=== PATIENT | male | born 1975 | race Caucasian/White ===

== ENCOUNTER 2025-05-01 17:18 | Inpatient (IN) | payer OTHER, SELFPAY ==
[2025-05-01] VITALS (14 sets, daily range): BP systolic 98–117; BP diastolic 61–86; PULSE 67–101; RESP 16–27; TEMP 36.6–36.7; O2SAT 92–100; BMI 26.6; BMI 27.8
--- NOTE | 2025-05-01 17:28 | ECG_ITS ---
APPROVED REPORT Exam: Resting ECG HR:100 bpm ECG Measurements Heart Rate 100 AXES CA 175 P 68 QRSd 166 QRS 122 QT 402 T 12 QTc 459 Conclusion SINUS TACHYCARDIA POSSIBLE LEFT ATRIAL ENLARGEMENT [-0.1mV P-WAVE IN V1/V2] INTRAVENTRICULAR CONDUCTION DELAY [130+ ms QRS DURATION] ABNORMAL ECG Electronically signed by : TRISTIAN RAYA, 05/04/2025 14:12:06
--- NOTE | 2025-05-01 17:29 | ED_ITS ---
Discharge Plan Disposition Patient Disposition: Admitted Prescriptions Prescriptions: No Action No Known Home Medications Referrals Follow up/Referrals: Provider,Referral, MD [Primary Care Provider, Medical] - See instructions Clinical Impressions Clinical Impression: Breath shortness, Elevated brain natriuretic peptide (BNP) level, Decreased cardiac ejection fraction Print Language Print Language: Belarusian Discharge ED Provider: Oumar Camacho General Adult HPI <ALEXIS Barajas - Last Filed: 05/01/25 19:22> General Chief complaint: Upper Respiratory Infection Stated complaint: SOA Time Seen by Provider: 05/01/25 17:29 Mode of Arrival: Ambulatory Source of Information: Patient Limitations: No Limitations History of Present Illness HPI narrative: 49-year-old male presents to the emergency department with shortness of breath, productive cough, congestion fever and chills that have actually improved over the last 3 days, patient's main concern today is shortness of breath , while working patient is experiencing significant shortness of breath, does endorse recent sick contact 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 Initial triage vitals noted for tachycardia otherwise unremarkable. Please note that above description of symptoms, in this electronic medical record under categorization of recalled from ER triage doctor by RN are reflective of an initial nursing assessment, however, is not reflective of my full history and physical exam that was personally taken and clarified. Consequentially, this preceding description of symptoms, which may include the patient's categorized chief complaint in the EMR, do not reflect my personal clinical impression, and the ultimate description of history of present illness and patient stated complaints should be deferred to this section of the note. Unless stated otherwise or congruent with this section of the note, additional signs, symptoms, or incongruence should be interpreted as inaccurate with my clinical impression. Onset (ago): day(s) Related Data Home Medications ?Medication ?Instructions ?Recorded ?Confirmed No Known Home Medications 05/01/2504/09 Allergies Allergy/AdvReac Type Severity Reaction Status Date / Time No Known Allergies Allergy Verified 05/01/25 17:39 [facility] <ALEXIS Barajas - Last Filed: 05/01/25 19:22> [facility] Disclaimer: The information contained in this section may have been updated after the patient was seen, as this information can be updated by other users. Social History (Updated 05/01/25 @ 19:22 by ALEXIS Barajas) Smoking Status: Never smoker alcohol intake: never current occupational status: employed and other Travel in the last 8 weeks?: None Have you lived/traveled outside US in past 30 days?: No Contact w/someone who lives/traveled outside US past 30 days?: No Exposure to someone with infectious disease in past 14 days?: No Do you have a fever (greater than 100.4 F or 38 C)?: No Have you tested positive for COVID-19?: No Exposed to someone with COVID-19 in past 14 days?: No Do you have a sore throat?: No Do you have a cough?: No Do you have any weakness?: No Do you have any diarrhea?: No Are you experiencing any unusual bleeding?: No Do you have any muscle aches/pain?: No Do you have any abdominal pain?: No Are you experiencing loss of taste or smell?: No <ALEXIS Barajas - Last Filed: 05/01/25 19:22> ROS Obtained: Yes All systems reviewed & no additional complaints except as documented Physical Exam <ALEXIS Barajas - Last Filed: 05/01/25 19:22> General General appearance: alert and in no apparent distress Head Head exam: atraumatic and normocephalic Eye Eye exam: Present PERRL and EOMI ENT ENT exam: Present mucous membranes moist Neck Neck exam: Present normal inspection Chest Chest inspection: Present normal inspection and symmetric chest wall rise Respiratory Respiratory exam: Present wheezes and other (Mild diffuse wheezes and crackles noted throughout bilateral lung field); Absent normal lung sounds bilaterally or respiratory distress Cardiovascular Cardiovascular exam: Present regular rate and normal rhythm Abdominal Exam Abdominal exam: Present soft; Absent tenderness, guarding, rebound or rigidity Extremities Exam Extremities exam: Present normal inspection Neurological Exam Neurological exam: Present alert and oriented X3 Psychiatric Psychiatric exam: Present normal affect Skin Skin exam: Present warm and dry Medical Decision Making <ALEXIS Barajas - Last Filed: 05/01/25 19:22> Medical Records Medical records reviewed: Yes I reviewed the patient's medical records. Screening: Per USPSTF and CDC recommendations, given the prevalence of disease in our region, it is our hospital?s policy to screen for HIV and viral Hepatitis for all patients aged 18 and over and those with ongoing risk factors. Deondre Inquiry Pt receiving controlled substance: No Deondre was queried for this patient: No Vital Signs: 05/01/25 17:20 05/01/25 17:27 05/01/25 17:30 Temperature 97.8 F Temperature Source Oral Pulse Rate 100 H 86 Pulse Rate [Left Radial] 101 H Respiratory Rate 16 Blood Pressure 110/83 117/70 Blood Pressure [Right Arm] 110/83 Blood Pressure Mean Blood Pressure Mean [Right Arm] 92 Blood Pressure Source [Right Arm] Automatic Cuff Blood Pressure Position [Right Arm] Sitting 02 Sat by Pulse Oximetry 96 96 94 L Oxygen Delivery Method Room Air 05/01/25 18:00 05/01/25 18:30 Temperature Temperature Source Pulse Rate 67 97 H Pulse Rate [Left Radial] Respiratory Rate 16 16 Blood Pressure 98/72 L 112/86 Blood Pressure [Right Arm] Blood Pressure Mean 80 94 Blood Pressure Mean [Right Arm] Blood Pressure Source [Right Arm] Blood Pressure Position [Right Arm] 02 Sat by Pulse Oximetry 100 96 Oxygen Delivery Method Lab Data Lab results reviewed: Yes I reviewed the patient's lab results. Lab Results 05/01/25 17:31: SARS-CoV-2 (PCR) Not detected, Influenza A Untype (PCR) Not detected, Influenza Type B (PCR) Not detected 05/01/25 17:40: WBC 17.0 H, RBC 4.33 L, Hgb 12.0 L, Hct 36.3 L, MCV 83.8, MCH 27.7, MCHC 33.1, RDW 14.4, Plt Count 331, MPV 10.1, Neut % (Auto) 80.3 H, Lymph % (Auto) 12.2, Greene % (Auto) 6.4, Eos % (Auto) 0.4, Baso % (Auto) 0.2, Neut # (Auto) 13.7 H, Lymph # (Auto) 2.1, Greene # (Auto) 1.1 H, Eos # (Auto) 0.1, Baso # (Auto) 0.0, Sodium 135 L, Potassium 3.2 L, Chloride 96 L, Carbon Dioxide 27, A nion Gap 15.2 H, BUN 9, Creatinine 1.00, Estimated Creat Clear 105, Estimated GFR 80, Est GFR ( Amer) 97, Glucose 97, Calcium 8.1 L, Magnesium 1.6, Total Bilirubin 0.4, AST 52, ALT 88 H, Alkaline Phosphatase 82, Troponin I 0.03, NT-Pro-B Natriuret Pep 7790 H, Total Protein 6.5, Albumin 3.7, Globulin 2.8, Albumin/Globulin Ratio 1.3 05/01/25 17:40 05/01/25 17:40 Orders (Tests/Meds): ED MEDICATIONS Generic Name Dose Route Start Last Admin Trade Name Farheen PRN Reason Stop Dose Admin Enoxaparin Sodium 80 mg 05/01/25 19:45 Enoxaparin 100mg/Ml Syringe 1 mg/kg (80 mg) 05/31/25 19:44 SUBCUT Q12H MATILDE Milrinone Lactate 20 mg/ 100 mls @ 3.062 mls/hr 05/01/25 19:32 Sodium Chloride IV 05/31/25 19:31 .Q24H MATILDE Protocol 0.125 MCG/KG/MIN Sodium Chloride 10 ml 05/01/25 18:40 05/01/25 18:41 Sodium Chloride 0.9% 10ml Syr (Rad Only) IV 05/31/25 18:39 10 ml NEEDED PRN Administration Maintain IV Site Discontinued Medications Generic Name Dose Route Start Last Admin Trade Name Freq PRN Reason Stop Dose Admin Albuterol/Ipratropium 6 ml 05/01/25 17:36 05/01/25 17:50 Ipratropium/Albuterol 3 Ml Neb IH 05/01/25 17:37 6 ml ONCE ONE Administration Furosemide 40 mg 05/01/25 19:10 05/01/25 19:15 Furosemide 40mg/4ml Vial IV 05/01/25 19:11 40 mg ONCE ONE Administration Iopamidol 70 ml 05/01/25 18:40 05/01/25 18:41 Iopamidol-370 (76%);100ml Bottle IV 05/01/25 18:41 70 ml ONCE ONE Administration Methylprednisolone Sodium Succinate 125 mg 05/01/25 17:36 05/01/25 17:50 Methylprednisolone Sod Succ 125mg Vial IV 05/01/25 17:37 125 mg ONCE ONE Administration Potassium Chloride 60 meq 05/01/25 18:29 05/01/25 18:50 Potassium Chloride 20meq Tab PO 05/01/25 18:30 60 meq ONCE ONE Administration Sodium Chloride 50 ml 05/01/25 18:40 05/01/25 18:41 0.9 % Sodium Chloride 50 Ml Vial IV 05/01/25 18:41 50 ml ONCE ONE Administration ORDERS Category Date Time Status CT angio chest PE protocol Stat Cat Scan 05/01/25 18:22 Completed POCUS Point of Care (ER Only) Stat Exams 05/01/25 18:56 Ordered XR chest portable Stat Exams 05/01/25 17:36 Completed Complete Blood Count Auto Diff Stat Lab 05/01/25 17:40 Completed Comprehensive Metabolic Panel Stat Lab 05/01/25 17:40 Completed Full Resp Panel w/COVID ([facility]) Routine Lab 05/01/25 17:31 Received Magnesium Stat Lab 05/01/25 17:40 Completed NT Pro Brain Natriuretic Pep. Stat Lab 05/01/25 17:40 Completed Rapid PCR Covid and Flu A/B Stat Lab 05/01/25 17:31 Completed Troponin I Q3H Lab 05/01/25 20:45 Ordered Troponin I Q3H Lab 05/01/25 23:45 Ordered Troponin I Stat Lab 05/01/25 17:40 Completed Medical Decision Narrative: 49-year-old male presents the emergency department with productive cough congestion, fever chills, shortness of breath, over the last 3 days, differential diagnosis to include but not limited to, COPD exacerbation, cardiac arrhythmia, electrolyte disturbance, acute bronchitis, viral URI, pneumonia among others. Will obtain basic laboratory studies, chest x-ray, EKG, magnesium level proBNP, rapid PCR COVID and flu, troponin, will give 6 mm DuoNeb, and will give 125 mg IV methylprednisone. CBC is notable for leukocytosis 17 COVID-19 and influenza are negative via PCR I reviewed the patient's chest x-ray along the corresponding radiologic report, no acute findings. CMP is noted for mild hypokalemia at 3.2, ALT elevation at 88 proBNP is elevated at 7790, as well as troponin at 0.03 will obtain CTA chest without contrast PE protocol. Will also replace patient's potassium with 60 milliequivalents p.o. potassium. I along with the attending physician obtained a bedside POCUS ultrasound please see attending physician/ultrasound note for full details. Will obtain full respiratory panel for further evaluation/characterization. Will also give 40 mg IV Lasix for elevated proBNP. I reviewed the patient's CTA chest with without contrast on the corresponding radiologic report, no evidence of pulmonary embolism, mild diffuse ground glass opacities noted bilaterally may represent alveolitis edema or early infiltrate, moderate cardiomegaly, no coronary calcium noted left ventricular dilation. I discussed this patient's case with the attending physician Dr. Camacho at shift change, he will be assuming the med patient's care/workup, disposition is pending cardiology consultation with most likely admission. <Oumar Camacho MD - Last Filed: 05/01/25 19:49> Vital Signs: 05/01/25 17:20 05/01/25 17:27 05/01/25 17:30 Temperature 97.8 F Temperature Source Oral Pulse Rate 100 H 86 Pulse Rate [Left Radial] 101 H Respiratory Rate 16 Blood Pressure 110/83 117/70 Blood Pressure [Right Arm] 110/83 Blood Pressure Mean Blood Pressure Mean [Right Arm] 92 Blood Pressure Source [Right Arm] Automatic Cuff Blood Pressure Position [Right Arm] Sitting 02 Sat by Pulse Oximetry 96 96 94 L Oxygen Delivery Method Room Air 05/01/25 18:00 05/01/25 18:30 Temperature Temperature Source Pulse Rate 67 97 H Pulse Rate [Left Radial] Respiratory Rate 16 16 Blood Pressure 98/72 L 112/86 Blood Pressure [Right Arm] Blood Pressure Mean 80 94 Blood Pressure Mean [Right Arm] Blood Pressure Source [Right Arm] Blood Pressure Position [Right Arm] 02 Sat by Pulse Oximetry 100 96 Oxygen Delivery Method Lab Data Lab Results 05/01/25 17:31: SARS-CoV-2 (PCR) Not detected, Influenza A Untype (PCR) Not detected, Influenza Type B (PCR) Not detected 05/01/25 17:40: WBC 17.0 H, RBC 4.33 L, Hgb 12.0 L, Hct 36.3 L, MCV 83.8, MCH 27.7, MCHC 33.1, RDW 14.4, Plt Count 331, MPV 10.1, Neut % (Auto) 80.3 H, Lymph % (Auto) 12.2, Greene % (Auto) 6.4, Eos % (Auto) 0.4, Baso % (Auto) 0.2, Neut # (Auto) 13.7 H, Lymph # (Auto) 2.1, Greene # (Auto) 1.1 H, Eos # (Auto) 0.1, Baso # (Auto) 0.0, Sodium 135 L, Potassium 3.2 L, Chloride 96 L, Carbon Dioxide 27, A nion Gap 15.2 H, BUN 9, Creatinine 1.00, Estimated Creat Clear 105, Estimated GFR 80, Est GFR ( Amer) 97, Glucose 97, Calcium 8.1 L, Magnesium 1.6, Total Bilirubin 0.4, AST 52, ALT 88 H, Alkaline Phosphatase 82, Troponin I 0.03, NT-Pro-B Natriuret Pep 7790 H, Total Protein 6.5, Albumin 3.7, Globulin 2.8, Albumin/Globulin Ratio 1.3 Orders (Tests/Meds): ED MEDICATIONS Generic Name Dose Route Start Last Admin Trade Name Freq PRN Reason Stop Dose Admin Enoxaparin Sodium 80 mg 05/01/25 19:45 Enoxaparin 100mg/Ml Syringe 1 mg/kg (80 mg) 05/31/25 19:44 SUBCUT Q12H MATILDE Milrinone Lactate 20 mg/ 100 mls @ 3.062 mls/hr 05/01/25 19:32 Sodium Chloride IV 05/31/25 19:31 .Q24H MATILDE Protocol 0.125 MCG/KG/MIN Sodium Chloride 10 ml 05/01/25 18:40 05/01/25 18:41 Sodium Chloride 0.9% 10ml Syr (Rad Only) IV 05/31/25 18:39 10 ml NEEDED PRN Administration Maintain IV Site Discontinued Medications Generic Name Dose Route Start Last Admin Trade Name Freq PRN Reason Stop Dose Admin Albuterol/Ipratropium 6 ml 05/01/25 17:36 05/01/25 17:50 Ipratropium/Albuterol 3 Ml Neb IH 05/01/25 17:37 6 ml ONCE ONE Administration Furosemide 40 mg 05/01/25 19:10 05/01/25 19:15 Furosemide 40mg/4ml Vial IV 05/01/25 19:11 40 mg ONCE ONE Administration Iopamidol 70 ml 05/01/25 18:40 11/24/25 18:41 Iopamidol-370 (76%);100ml Bottle IV 05/01/25 18:41 70 ml ONCE ONE Administration Methylprednisolone Sodium Succinate 125 mg 05/01/25 17:36 05/01/25 17:50 Methylprednisolone Sod Succ 125mg Vial IV 05/01/25 17:37 125 mg ONCE ONE Administration Potassium Chloride 60 meq 05/01/25 18:29 05/01/25 18:50 Potassium Chloride 20meq Tab PO 05/01/25 18:30 60 meq ONCE ONE Administration Sodium Chloride 50 ml 05/01/25 18:40 05/01/25 18:41 0.9 % Sodium Chloride 50 Ml Vial IV 05/01/25 18:41 50 ml ONCE ONE Administration ORDERS Category Date Time Status CT angio chest PE protocol Stat Cat Scan 05/01/25 18:22 Completed POCUS Point of Care (ER Only) Stat Exams 05/01/25 18:56 Ordered XR chest portable Stat Exams 05/01/25 17:36 Completed Complete Blood Count Auto Diff Stat Lab 05/01/25 17:40 Completed Comprehensive Metabolic Panel Stat Lab 05/01/25 17:40 Completed Full Resp Panel w/COVID ([facility]) Routine Lab 05/01/25 17:31 Received Magnesium Stat Lab 05/01/25 17:40 Completed NT Pro Brain Natriuretic Pep. Stat Lab 05/01/25 17:40 Completed Rapid PCR Covid and Flu A/B Stat Lab 05/01/25 17:31 Completed Troponin I Q3H Lab 05/01/25 20:45 Ordered Troponin I Q3H Lab 05/01/25 23:45 Ordered Troponin I Stat Lab 05/01/25 17:40 Completed Medical Decision Narrative: 49-year-old male presents the emergency department with productive cough congestion, fever chills, shortness of breath, over the last 3 days, differential diagnosis to include but not limited to, COPD exacerbation, cardiac arrhythmia, electrolyte disturbance, acute bronchitis, viral URI, pneumonia among others. Will obtain basic laboratory studies, chest x-ray, EKG, magnesium level proBNP, rapid PCR COVID and flu, troponin, will give 6 mm DuoNeb, and will give 125 mg IV methylprednisone. CBC is notable for leukocytosis 17 COVID-19 and influenza are negative via PCR I reviewed the patient's chest x-ray along the corresponding radiologic report, no acute findings. CMP is noted for mild hypokalemia at 3.2, ALT elevation at 88 proBNP is elevated at 7790, as well as troponin at 0.03 will obtain CTA chest without contrast PE protocol. Will also replace patient's potassium with 60 milliequivalents p.o. potassium. I along with the attending physician obtained a bedside POCUS ultrasound please see attending physician/ultrasound note for full details. Will obtain full respiratory panel for further evaluation/characterization. Will also give 40 mg IV Lasix for elevated proBNP. I reviewed the patient's CTA chest with without contrast on the corresponding radiologic report, no evidence of pulmonary embolism, mild diffuse ground glass opacities noted bilaterally may represent alveolitis edema or early infiltrate, moderate cardiomegaly, no coronary calcium noted left ventricular dilation. I discussed this patient's case with the attending physician Dr. Camacho at shift change, he will be assuming the [facility] patient's care/workup, disposition is pending cardiology consultation with most likely admission. Oumar Camacho MD: I was consulted by the PHILL, and we discussed the complexity of the problems being addressed. I approve the treatment and management plan for this patient's care in the emergency department, thus performing a substantive portion of the medical decision making. I reviewed the patient's workup and performed bedside cardiac ultrasound. Patient has elevated BNP and borderline elevated initial troponin. EKG shows signs of left ventricular enlargement. [id number] ultrasound of the heart shows global left ventricle hypokinesis and diminished left ventricular ejection fraction. No pericardial effusion. Due to patient's recent viral illness exposure and viral symptoms, I do suspect patient likely has viral myocarditis. Will expand patient's respiratory swab to full respiratory panel. I did discuss patient's case with Dr. Benitez who agreed with 40 mg of IV Lasix, 0.125 of milrinone drip, and 1 mg/kg of Lovenox and admission and he will evaluate the patient in the morning. I also discussed admission with patient and he was in agreement with this plan. I then discussed patient's case with hospitalist, Dr. You, who agreed to admit the patient for further management. Procedures <Oumar Camacho MD - Last Filed: 05/01/25 19:49> Limited Ultrasound Indication:: Limited cardiac ultrasound Indication: Shortness of breath Identified cardiac views: -Cardiac parasternal long axis -Cardiac parasternal short axis -Cardiac apical four-chamber -Cardiac subxiphoid Findings: -Global hypokinesis with diminished left ventricular ejection fraction. Left ventricle does appear enlarged. No pericardial effusion. Impression: - From above Images were saved to permanent archive The study was technically adequate CPT: 28830 This study was performed by me, Oumar Camacho MD, and I personally interpreted all images/videos. Based on my clinical judgement, these images were adequate and did not necessitate further imaging. Critical Care <ALEXIS Barajas - Last Filed: 05/01/25 19:22> Critical Care Time Critical Care Time: No
--- NOTE | 2025-05-01 17:36 | XR_ITS ---
PROCEDURE INFORMATION: Exam: XR Chest Exam date and time: 05/01/2025 5:52 PM Age: 49 years old Clinical indication: Shortness of breath; Additional info: SOA TECHNIQUE: Imaging protocol: Radiologic exam of the chest. Views: 1 view. COMPARISON: No relevant prior studies available. FINDINGS: Lungs: Chronic interstitial changes. No consolidation. Pleural spaces: Unremarkable. No pleural effusion. No pneumothorax. Heart/Mediastinum: Unremarkable. Mild cardiomegaly. Bones/joints: Unremarkable. IMPRESSION: No acute findings.
[2025-05-01 17:43] LABS: Coronavirus 19, PCR Not Detected (NotDetected); Influenza A, PCR Not Detected (NotDetected); Influenza B, PCR Not Detected (NotDetected)
[2025-05-01] MEDS: IPRATROPIUM/ALBUTEROL 3 ML NEB 6 ML IH (17:50)
[2025-05-01] MEDS: METHYLPREDNISOLONE SOD SUCC 125MG VIAL 125 MG IV (17:50)
[2025-05-01 17:57] LABS: Hematocrit 36.3 % (42.0-52.0); Hemoglobin 12.0 g/dL (14.1-18.0); Immature Granulocytes % 0.5 %; Mean Corpuscular HGB Conc 33.1 g/dL (31.8-35.4); Mean Corpuscular Hemoglobin 27.7 pg (27.0-31.2); Mean Corpuscular Volume 83.8 fl (80-94); Nucleated Red Blood Cells % 0 %; Platelet Count 331 K/mm3 (142-424); Red Blood Count 4.33 M/mm3 (4.60-6.20); Red Cell Distribution Width-SD 43.8 fL; White Blood Count 17.0 K/mm3 (4.8-10.8)
--- OUTSIDE RECORDS SUMMARY | 2025-05-01 18:04 | XMS_ITS | Encounter Summary ---
Author Organization [facility] Address [address] [place] [address] Care Team Providers Care [employer] Name Role Phone Lianet Bazzi APRN Primary Care Provider [phone]- [phone] Reason for Visit * Reason Onset Date Comments Med Refill 04/17/2025 Encounter Details Date Type Department Care Team (Late st Contact Info) Description 04/17/2025 Refill [facility] [address] [facility] [address] [place], [place] [id number] Aliyah Bazzi PAMargothC [address] [facility] [address] [place] [address] Social History Tobacco Use Types Packs/Day Years Used Date Smoking Tobacco: Former Cigarettes 0.5 11.8 2 013 - 04/08/2024 Smokeless Tobacco: Former Comments:Nicotine pouches Alcohol Use Standard Drinks/Week Comments Yes 1 (1 standard drink = 0.6 oz pur e alcohol) on ocassions AUDIT-C Answer Date Recorded Q1: How often do you have a drink containing alc ohol? Monthly or less 02/01/2025 Q2: How many drinks containi ng alcohol do you have on a typical day when you are drinking? 1 or 2 02/01/2025 Q3: How often do you have si x or more drinks on one occasion? Never 02/01/2025 Abuse Screen Answer Date Recorded Feels Unsafe at Home or Work/School no 02/01/2025 Feels Threatened by Someone no 01/07 Does Anyone Try to Keep You From Having Contact with Others or Doing Things Outside Your Home? no 02/01/2025 Physical Signs of Abuse Present no 02/01/2025 Housing Stability Answer Date Recorded Current Living Arrangements apartment 01/07 Potentially Unsafe Housing Conditions Not on ruddy e 02/01/2025 Disabilities Answer Date Recorded Difficulty Concentrating, Remembering or Making Decisions no 02/01/2025 Difficulty Managing Errands Independently no 02/01/2025 PHQ-2 Answer Date Recorded Patient Health Questionnaire-2 Score 0 02/08/2025 Sex and Gender Information Value Date Recorded Sex Assigned at Not on file Legal Sex Male 12:53 PM EDT Gender Identity Not on file Sexual Orientation Not on file documented as of this encounter Plan of Treatment Not on file documented as of this encounter Visit Diagnoses Not on filedocumented in this encounter Care Teams [employer] Relationship Specialty Start Date End Date Lianet aBzzi APRN [address] [facility] [address] [place] [address] PCP - General Nurse Practitioner 11/14/22 documented as of this encounter
--- OUTSIDE RECORDS SUMMARY | 2025-05-01 18:04 | XMS_ITS | Clinical Summary ---
[facility] Address [address] [place] [address] Care Team Providers Care Sales Contractor Name Role Phone Lianet Bazzi APRN Primary Care Provider Allergies No known active allergies Medications diclofenac (VOLTAREN) 75 MG EC tabletIndicatio ns:Acute midline low back pain without sciatica,Bilate ral hand pain Take 1 tablet by mouth 2 (Two) Times a Day As Needed (pain). 60 tablet 1 11/14/2022 Active Sod Picosulfate-Mag Ox-Cit Acd 10-3.5-12 MG-GM -GM/160ML solution Take 350 mL by mouth Take As Directed for 1 dose. 350 mL 04/17/2025 Active Active Problems Problem Noted Date Diagnosed Date CAP (community acquired pneumonia) 02/01/2025 Mixed hyperlipidemia 11/28/2022 Encounters Date Type Department Care Team Description 04/17/2025 Refill [facility] [address] [facility] [address] [place] [address] Aliyah Bazzi PA-C 02/16/2025 Telephone [facility] [address] [facility] [address] [place] [address] Lianet Bazzi APRN 02/08/2025 11:30 AM EDT Office Visit [facility] [address] [facility] [address] [place] [address] Lianet Bazzi APRN Screen for colon cancer (Primary Dx); Community acquired pneumonia of right lower lobe of lung 02/08/2025 Travel 02/03/2025 Transitional Care Management Telephone Encounter [facility] [address] [place] [address] Adrianne Barrera RN 02/02/2025 Readmission Management [facility] [address] [place] [address] Wandy Baker RN 02/01/2025 5:32 AM EDT - 02/02/2025 9:16 AM EDT Hospital Encounter [facility] [address] [place] [address] Brooks Morton MD Kukkamalla, Rene M, MD Greco, Esther Lee, DO Community acquired pneumonia of right lower lobe of lung (Primary Dx) Discharge Disposition: Home or Self Care 02/01/2025 Travel from Last 3 Months Immunizations Immunization Administration Dates Next Due COVID-19 (PFIZER) Purple Cap Monovalent 01/19/20 21,12/18/2020 Pneumococcal Conjugate 20-Valent (PCV20) 023 Tdap 08/31/2024,11/14/2022 Family History Medical History Relation Name Comments Hypertension Maternal Uncle Dementia Mother Diabetes Mother Cancer Paternal Uncle lung Relation Name Status Comments Maternal Uncle Mother Paternal Uncle Social History Tobacco Use Types Packs/Day Years Used Date Smoking Tobacco: Former Cigarettes 0.5 11.8 2 013 - 04/08/2024 Smokeless Tobacco: Former Tobacco Cessation:Counseling Given: Not Answered Comments:Nicotine pouches Alcohol Use Standard Drinks/Week Comments [...] on file Sexual Orientation Not on file Last Filed Vital Signs Vital Sign Reading Time Taken Comments Blood Pressure 98/60 02/08/2025 11:34 AM EDT Pulse 68 02/08/2025 11:34 AM EDT Temperature 36.2 C (97.1 F) 02/08/2025 11:34 AM EDT Respiratory Rate 18 02/08/2025 11:34 AM EDT Oxygen Saturation 95% 02/08/2025 11:34 AM EDT Inhaled Oxygen Concentration - - Weight 91 kg (200 lb 9.6 oz) 02/08/2025 11:34 AM EDT Height 175.3 cm (5' 9 ) 02/08/2025 11:34 AM EDT Body Mass Index 29.62 02/08/2025 11:34 AM EDT Plan of Treatment Health Maintenance Due Date Last Done Comments COLOGUARD 2022 COLON CANCER SCREENING 5 YEA R SIGMOIDOSCOPY 2022 COLONOSCOPY 2022 COLORECTAL CANCER SCREENING 2022 CT COLONOGRAPHY 2022 FECAL OCCULT BLOOD TEST 2022 FIT Testing (1 year) 2022 ANNUAL PHYSICAL 11/14/2022 LIPID PANEL 11/15/2023 11/14/2022 INFLUENZA VACCINE 01/06/2025 TDAP/TD VACCINES (3 - Td or Tdap) 08/31/2034 08/31/2024, 11/14/2022 HEPATITIS C SCREENING Completed 11/14/2022 Pneumococcal Vaccine 0-49 Aged Out 11/14/2022 No longer eligible based on patient's age to complete this topic Procedures Procedure Name Priority Date/Time Associated Diagnosis Comments SCANNED - TELEMETRY 02/02/2025 8 :27 AM EDT CBC WITH AUTO DIFFERENTIAL Urgent 02/02/2025 5:38 AM EDT COMPREHENSIVE METABOLIC PANEL Urgent 02/02/2025 5:38 AM EDT SCANNED - TELEMETRY 02/01/2025 4 :00 PM EDT SCANNED - TELEMETRY 02/01/2025 1 1:45 AM EDT SCANNED - TELEMETRY 02/01/2025 7 :57 AM EDT MAGNESIUM STAT 02/01/2025 6:41 AM EDT HIGH SENSITIVITIY TROPONIN T 1HR STAT 02/01/2025 6:41 AM EDT ECG 12-LEAD STAT 02/01/2025 6:36 AM EDT RESPIRATORY PANEL PCR W/ COVID-19 (SARS-COV-2), RESEARCH PROGRAM ASSISTANT SWAB IN UTM/VTP, 2 HR TAT STAT 02/01/2025 6:[address] ANGIOGRAM CHEST PULMONARY EMBOLISM STAT 02/01/2025 6:04 AM EDT XR CHEST 1 VW STAT 02/01/2025 5:46 AM EDT SCANNED - TELEMETRY 02/01/2025 5 :42 AM EDT LIGHT BLUE TOP STAT 02/01/2025 5:39 AM EDT LE TOP STAT 02/01/2025 5:39 AM EDT GOLD TOP - SST STAT 02/01/2025 5:39 AM EDT LAVENDER TOP STAT 02/01/2025 5:39 AM EDT DK GREEN TOP STAT 02/01/2025 5:39 AM EDT CBC AND DIFFERENTIAL STAT 02/01/2025 5:39 AM EDT PROCALCITONIN STAT 02/01/2025 5:39 AM EDT LACTIC ACID, PLASMA STAT 02/01/2025 5 :39 AM EDT CBC WITH AUTO DIFFERENTIAL STAT 02/01/2025 5:39 AM EDT TROPONIN STAT 02/01/2025 5:39 AM EDT B-TYPE NATRIURETIC PEPTIDE STAT 02/01/2025 5:39 AM EDT COMPREHENSIVE METABOLIC PANEL STAT 02/01/2025 5:39 AM EDT RAINBOW DRAW STAT 02/01/2025 5:39 AM EDT ECG 12-LEAD STAT 02/01/2025 5:32 AM EDT LIPID PANEL Routine 11/14/2022 10:49 AM EDT Acute midline low back pain without sciatica Bilateral hand pain Anxiety HCV ANTIBODY RFX TO QNT PCR Routine 11/14/2022 10:49 AM EDT Need for hepatitis C screening test from Last 3 Months or Most Recently Relevant to Health Maintenance Results * Telemetry Scan (02/02/2025 8:27 AM EDT) Only the most recent of5 resultswithin the time period is included. [facility] Onbase ECG ORDERABLES Final Result * (ABNORMAL) CBC Auto Differential (02/02/2025 5:38 AM EDT) Only the most recent of2 resultswithin the time period is included. WBC 10.29 3.40 - 10.80 10*3/mm3 02/02/2025 5:48 AM [facility] RBC 4.50 4.14 - 5.80 10*6/mm3 02/02/2025 5:48 AM [facility] Hemoglobin 12.8(L) 13.0 - 17.7 g/dL 02/02/2025 5:48 AM [facility] Hematocrit 39.0 37.5 - 51.0 % 02/02/2025 5:48 AM [facility] MCV 86.7 79.0 - 97.0 fL 02/02/2025 5:48 AM [facility] MCH 28.4 26.6 - 33.0 pg 02/02/2025 5:48 AM [facility] MCHC 32.8 31.5 - 35.7 g/dL 02/02/2025 5:48 AM [facility] RDW 14.0 12.3 - 15.4 % 02/02/2025 5:48 AM [facility] RDW-SD 45.2 37.0 - 54.0 fl 02/02/2025 5:48 AM [facility] MPV 10.2 6.0 - 12.0 fL 02/02/2025 5:48 AM [facility] Platelets 232 140 - 450 10*3/mm3 02/02/2025 5:48 AM [facility] Neutrophil % 74.7 42.7 - 76.0 % 02/02/2025 5:48 AM [facility] Lymphocyte % 15.9(L) 19.6 - 45.3 % 02/02/2025 5:48 AM [facility] Monocyte % 7.8 5.0 - 12.0 % 02/02/2025 5:48 AM [facility] Eosinophil % 1.2 0.3 - 6.2 % 02/02/2025 5:48 AM [facility] Basophil % 0.3 0.0 - 1.5 % 02/02/2025 5:48 AM [facility] Immature Grans % 0.1 0.0 - 0.5 % 02/02/2025 5:48 AM EDT [facility] Neutrophils, Absolute 7.69(H) 1.70 - 7.00 10*3/mm3 02/02/2025 5:48 AM EDT [facility] Lymphocytes, Absolute 1.64 0.70 - 3.10 10*3/mm3 02/02/2025 5:48 AM EDT [facility] Monocytes, Absolute 0.80 0.10 - 0.90 10*3/mm3 02/02/2025 5:48 AM EDT [facility] Eosinophils, Absolute 0.12 0.00 - 0.40 10*3/mm3 02/02/2025 5:48 AM EDT [facility] Basophils, Absolute 0.03 0.00 - 0.20 10*3/mm3 02/02/2025 5:48 AM EDT [facility] Immature Grans, Absolute 0.01 0.00 - 0.05 10*3/mm3 02/02/2025 5:48 AM EDT [facility] Blood Structure of left upper limb / Unknown Venipuncture / Unknown 02/02/2025 5:38 AM EDT 02/02/2025 5:45 AM EDT us Eder Torres APRN LAB BLOOD ORDERABLES Earlene l Result [facility]
[address] [place] [address], * (ABNORMAL) Comprehensive Metabolic Panel (02/02/2025 5:38 AM EDT) Only the most recent of2 resultswithin the time period is included. Glucose 126(H) 65 - 99 mg/dL 02/02/2025 6:04 AM EDT [facility] BUN 13.2 6.0 - 20.0 mg/dL 02/02/2025 6:04 AM EDT [facility] Creatinine 0.74(L) 0.76 - 1.27 mg/dL 02/02/2025 6:04 AM [facility] Sodium 133(L) 136 - 145 mmol/L 02/02/2025 6:04 AM [facility] Potassium 4.0 3.5 - 5.2 mmol/L 02/02/2025 6:04 AM [facility] Chloride 99 98 - 107 mmol/L 02/02/2025 6:04 AM [facility] CO2 21.5(L) 22.0 - 29.0 mmol/L 02/02/2025 6:04 AM [facility] Calcium 9.2 8.6 - 10.5 mg/dL 02/02/2025 6:04 AM [facility] Total Protein 6.8 6.0 - 8.5 g/dL 02/02/2025 6:04 AM [facility] Albumin 4.1 3.5 - 5.2 g/dL 02/02/2025 6:04 AM [facility] ALT (SGPT) 15 1 - 41 U/L 02/02/2025 6:04 AM [facility] AST (SGOT) 17 1 - 40 U/L 02/02/2025 6:04 AM [facility] Alkaline Phosphatase 82 39 - 117 U/L 02/02/2025 6:04 AM [facility] Total Bilirubin 0.5 0.0 - 1.2 mg/dL 02/02/2025 6:04 AM [facility] Globulin 2.7 gm/dL 02/02/2025 6:04 AM [facility] A/G Ratio 1.5 g/dL 02/02/2025 6:04 AM [facility] BUN/Creatinine Ratio 17.8 7.0 - 25.0 02/02/2025 6:04 AM [facility] Anion Gap 12.5 5.0 - 15.0 mmol/L 02/02/2025 6:04 AM [facility] eGFR 112.5 >60.0 mL/min/1.7 3 02/02/2025 6:04 AM [facility] Blood Structure of left upper limb / Unknown Venipuncture / Unknown 02/02/2025 5:38 AM EDT 02/02/2025 5:45 AM EDT Narrative [facility] - 02/02/2025 6:04 AM EDT GFR Categories in Chronic Kidney Disease (CKD) GFR Category GFR (mL/min/1.73) Interpretation G1 90 or greater Normal or high (1) G2 60-89 Mild decrease (1) G3a 45-59 Mild to moderate decrease G3b 30-44 Moderate to severe decrease G4 15-29 Severe decrease G5 14 or less Kidney failure (1)In the absence of evidence of kidney disease, neither GFR category G1 or G2 fulfill the criteria for CKD. eGFR calculation 2020 CKD-EPI creatinine equation, which does not include race as a factor Eder Torres APRN LAB BLOOD ORDERABLES Earlene l Result [facility]
[address] [facility] [address] [place] [address] * High Sensitivity Troponin T 1Hr (02/01/2025 6:41 AM EDT) HS Troponin T 13 <22 ng/L 02/01/2025 6:59 AM EDT [facility] Troponin T Numeric Delta 0 Abnormal if >/=3 ng/L 02/01/2025 6:59 AM EDT [facility] Blood Line / Unknown 02/01/2025 6: 41 AM EDT 02/01/2025 6:43 AM EDT Narrative [facility] - 02/01/2025 6:59 AM EDT High Sensitive Troponin T Reference Range: <14.0 ng/L- Negative Female for AMI <22.0 ng/L- Negative Male for AMI >=14 - Abnormal Female indicating possible myocardial injury. >=22 - Abnormal Male indicating possible myocardial injury. Clinicians would have to utilize clinical acumen, EKG, Troponin, and serial changes to determine if it is an Acute Myocardial Infarction or myocardial injury due to an underlying chronic condition. Brooks Morton MD LAB BLOOD ORDERABLES Final Result [facility]
[address] [place] [address], * Magnesium (02/01/2025 6:41 AM EDT) Magnesium 1.7 1.6 - 2.6 mg/dL 02/01/2025 8:12 AM EDT [facility] Blood Line / Unknown 02/01/2025 6: 41 AM EDT 02/01/2025 6:43 AM EDT Eder Torres APRN LAB BLOOD ORDERABLES Earlene l Result Performing Organization Address City/[facility]/ZIP Co de Phone Number [facility]
[address] [place] [address], [place] * ECG 12 Lead Dyspnea (02/01/2025 6:36 AM EDT) Only the most recent of2 resultswithin the time period is included. QT Interval 414 ms ECG QTC Interval 520 ms ECG 02/01/2025 6:36 AM EDT 03/05/2025 6:57 AM EDT Narrative ECG - 03/05/2025 6:57 AM EDT Test Reason : Dyspnea Blood Pressure : */* mmHG Vent. Rate : 95 BPM Atrial Rate : 95 BPM P-R Int : 162 ms QRS Dur : 148 ms QT Int : 414 ms P-R-T Axes : 58 23 58 degrees QTcB Int : 520 ms Normal sinus rhythm Possible Left atrial enlargement Left bundle branch block Abnormal ECG When compared with ECG of 01-Feb-2025 05:32, (Unconfirmed) No significant change was found Confirmed by Brooks Morton ([id number]) on 03/05/2025 6:57:56 AM Referred By: Confirmed By: Brooks Morton Procedure Note Brooks Morton MD - 03/05/2025 Test Reason : Dyspnea Blood Pressure : */* mmHG Vent. Rate : 95 BPM Atrial Rate : 95 BPM P-R Int : 162 ms QRS Dur : 148 ms QT Int : 414 ms P-R-T Axes : 58 23 58 degrees QTcB Int : 520 ms Normal sinus rhythm Possible Left atrial enlargement Left bundle branch block Abnormal ECG When compared with ECG of 01-Feb-2025 05:32, (Unconfirmed) No significant change was found Confirmed by Brooks Morton ([id number]) on 03/05/2025 6:57:56 AM Referred By: Confirmed By: Brooks Morton us Brooks Morton MD ECG ORDERABLES Final Resul t ECG * (ABNORMAL) Respiratory Panel PCR w/COVID-19(SARS-CoV-2) KEVIN/RUDOLPH/KRISHAN/PAD/COR/CHRISTINE In-House, RESEARCH PROGRAM ASSISTANT Swab in UTM/VTM, 2 HR TAT - Swab, Nasopharynx (02/01/2025 6:09 AM EDT) ADENOVIRUS, PCR Not Detected Not Detected BIOFIRE FILMARRAY 02/01/2025 7:01 AM EDT [facility] Coronavirus 229E Not Detected Not Detected BIOFIRE FILMARRAY 02/01/2025 7:01 AM EDT [facility] Coronavirus HKU1 Not Detected Not Detected BIOFIRE FILMARRAY 02/01/2025 7:01 AM EDT [facility] Coronavirus NL63 Not Detected Not Detected BIOFIRE FILMARRAY 02/01/2025 7:01 AM EDT [facility] Coronavirus OC43 Not Detected Not Detected BIOFIRE FILMARRAY 02/01/2025 7:01 AM EDT [facility] COVID19 Not Detected Not Detected - Ref. Range BIOFIRE FILMARRAY 02/01/2025 7:01 AM EDT [facility] Human Metapneumovirus Not Detected Not Detected BIOFIRE FILMARRAY 02/01/2025 7:01 AM EDT [facility] Human Rhinovirus/Enterov irus Detected(A) Not Detected BIOFIRE FILMARRAY 02/01/2025 7:01 AM [facility] Influenza A PCR Not Detected Not Detected BIOFIRE FILMARRAY 02/01/2025 7:01 AM [facility] Influenza B PCR Not Detected Not Detected BIOFIRE FILMARRAY 02/01/2025 7:01 AM [facility] Parainfluenza Virus 1 Not Detected Not Detected BIOFIRE FILMARRAY 02/01/2025 7:01 AM [facility] Parainfluenza Virus 2 Not Detected Not Detected BIOFIRE FILMARRAY 02/01/2025 7:01 AM [facility] Parainfluenza Virus 3 Not Detected Not Detected BIOFIRE FILMARRAY 02/01/2025 7:01 AM [facility] Parainfluenza Virus 4 Not Detected Not Detected BIOFIRE FILMARRAY 02/01/2025 7:01 AM [facility] RSV, PCR Not Detected Not Detected BIOFIRE FILMARRAY 02/01/2025 7:01 AM [facility] Bordetella pertussis pcr Not Detected Not Detected BIOFIRE FILMARRAY 02/01/2025 7:01 AM [facility] Bordetella parapertussis PCR Not Detected Not Detected BIOFIRE FILMARRAY 02/01/2025 7:01 AM [facility] Chlamydophila pneumoniae PCR Not Detected Not Detected BIOFIRE FILMARRAY 02/01/2025 7:01 AM [facility] Mycoplasma pneumo by PCR Not Detected Not Detected BIOFIRE FILMARRAY 02/01/2025 7:01 AM [facility] Swab Nasopharyngeal structure / Unknown Collection / Unknown 02/01/2025 6:09 AM EDT 02/01/2025 6:12 AM EDT [facility] - 02/01/2025 7:01 AM EDT In the setting of a positive respiratory panel with a viral infection PLUS a negative procalcitonin without other underlying concern for bacterial infection, consider observing off antibiotics or discontinuation of antibiotics and continue supportive care. If the respiratory panel is positive for atypical bacterial infection (Bordetella pertussis, Chlamydophila pneumoniae, or Mycoplasma pneumoniae), consider antibiotic de-escalation to target atypical bacterial infection. us Brooks Morton MD MICROBIOLOGY - GENERAL ORDDereje CORREIA Final Result [facility]
[address] [facility] [address] [place] [address], [place] * CT Angiogram Chest Pulmonary Embolism (02/01/2025 6:04 AM EDT) Anatomical Region Laterality Modality Chest N/A Computed Tomogra phy 02/01/2025 6:28 AM EDT Impressions 02/01/2025 6:33 AM EDT Impression: Multifocal pneumonia. No evidence of pulmonary embolism. Electronically Signed: Ellis Hector MD 02/01/2025 6:33 AM EDT Workstation ID: [id number] Narrative 02/01/2025 6:[address] ANGIOGRAM CHEST PULMONARY EMBOLISM Date of Exam: 02/01/2025 5:59 AM EDT Indication: Shortness of Breath. Comparison: None available. Technique: Axial CT images were obtained of the chest after the uneventful intravenous administration of iodinated contrast utilizing pulmonary embolism protocol. In addition, a 3-D volume rendered image was created for interpretation. Reconstructed coronal and sagittal images were also obtained. Automated exposure control and iterative construction methods were used. Findings: Hilum and Mediastinum: The heart is of normal size. There is no pericardial effusion. The thoracic aorta and pulmonary arteries are unremarkable. There are multiple reactive lymph nodes including in the AP window, the pretracheal space, the bilateral jose and the subcarinal space is favored to be reactive. Lung Parenchyma and Pleura: The trachea and bronchi are normal. There is right lower lobe airspace consolidation with air bronchograms. There are multiple nodular opacities with surrounding groundglass attenuation changes throughout the right lower lobe, within the posterior central left lower lobe within the lingular segment of the left upper lobe and in the medial right middle lobe consistent with infection. Upper Abdomen: No acute process. Soft tissues: Unremarkable. Osseous structures: No aggressive focal lytic or sclerotic osseous lesions. Procedure Note Ellis Hector MD - 02/01/2025 CT ANGIOGRAM CHEST PULMONARY EMBOLISM Date of Exam: 02/01/2025 5:59 AM EDT Indication: Shortness of Breath. Comparison: None available. Technique: Axial CT images were obtained of the chest after the uneventfulintravenous administration of iodinated contrast utilizing pulmonaryembolism protocol. In addition, a 3-D volume rendered image was createdfor interpretation. Reconstructed coronal and sagittal images were also obtained. Automated exposure controland iterative construction methods were used. Findings: Hilum and Mediastinum: The heart is of normal size. There is nopericardial effusion. The thoracic aorta and pulmonary arteries areunremarkable. There are multiple reactive lymph nodes including in the APwindow, the pretracheal space, the bilateral jose and the subcarinal space is favored to be reactive. Lung Parenchyma and Pleura: The trachea and bronchi are normal. There isright lower lobe airspace consolidation with air bronchograms. There aremultiple nodular opacities with surrounding groundglass attenuationchanges throughout the right lower lobe, within the posterior central left lower lobe within the lingular segmentof the left upper lobe and in the medial right middle lobe consistent withinfection. Upper Abdomen: No acute process. Soft tissues: Unremarkable. Osseous structures: No aggressive focal lytic or sclerotic osseouslesions. IMPRESSION: Impression: Multifocal pneumonia. No evidence of pulmonary embolism. Electronically Signed: Ellis Hector MD 02/01/2025 6:33 AM EDT Workstation ID: [id number] Brooks Morton MD IMG CT ORDERABLES Final Res ult * XR Chest 1 View (02/01/2025 5:46 AM EDT) Anatomical Region Laterality Modality Body N/A Radiographic Latoya ging 02/01/2025 5:51 AM EDT Impressions 02/01/2025 5:51 AM EDT Impression: Right lower lobe pneumonia. Electronically Signed: Ellis Hector MD 02/01/2025 5:51 AM EDT Workstation ID: [id number] Narrative 02/01/2025 5:51 AM EDT XR CHEST 1 VW Date of Exam: 02/01/2025 5:42 AM EDT Indication: SOA triage protocol. Comparison: None available. Findings: The heart is borderline enlarged. There is right lower lobe airspace disease consistent with pneumonia. There is no pneumothorax. The osseous structures are normal. Procedure Note Ellis Hector MD - 02/01/2025 XR CHEST 1 VW Date of Exam: 02/01/2025 5:42 AM EDT Indication: SOA triage protocol. Comparison: None available. Findings: The heart is borderline enlarged. There is right lower lobe airspacedisease consistent with pneumonia. There is no pneumothorax. The osseousstructures are normal. IMPRESSION: Impression: Right lower lobe pneumonia. Electronically Signed: Ellis Hector MD 02/01/2025 5:51 AM EDT Workstation ID: [id number] Brooks Morton MD IMG DIAGNOSTIC IMAGING [facility] Final Result * Le Top (02/01/2025 5:39 AM EDT) Extra Tube Hold for add-ons. 02/01/2025 5:45 AM EDT [facility] Comment:Auto resulted. Blood Line / Unknown 02/01/2025 5: 39 AM EDT 02/01/2025 5:43 AM EDT Brooks Morton MD LAB BLOOD ORDER ONLY Final Result [facility]
[address] [facility] [address] [place] [address], * [facility] (02/01/2025 5:39 AM EDT) Extra Tube Hold for add-ons. 02/01/2025 5:45 AM EDT [facility] Comment:Auto resulted. Blood Line / Unknown 02/01/2025 5: 39 AM EDT 02/01/2025 5:43 AM EDT Brooks Morton MD LAB BLOOD ORDER ONLY Final Result Performing Organization Address City/[facility]/ZIP Co de Phone Number [facility]
[address] [facility] [address] [place] [address], [place] * Green Top (Gel) (02/01/2025 5:39 AM EDT) Extra Tube Hold for add-ons. 02/01/2025 5:45 AM EDT [facility] Comment:Auto resulted. Blood Line / Unknown 02/01/2025 5: 39 AM EDT 02/01/2025 5:43 AM EDT Brooks Morton MD LAB BLOOD ORDER ONLY Final Result Performing Organization Address [facility] Co de Phone Number [facility]
[address] [facility] [address] [place] [address], [place] * (ABNORMAL) Procalcitonin (02/01/2025 5:39 AM EDT) Procalcitonin 0.36(H) 0.00 - 0.25 ng/mL 02/01/2025 6:25 AM EDT [facility] Blood Line / Unknown 02/01/2025 5: 39 AM EDT 02/01/2025 5:43 AM EDT us Brooks Morton MD LAB BLOOD ORDERABLES Final Result Performing Organization Address City/[facility]/ZIP Co de Phone Number [facility]
[address] [facility] [address] [place] [address], [place] * Lavender Top (02/01/2025 5:39 AM EDT) Extra Tube hold for add-on 02/01/2025 5:45 AM EDT [facility] Comment:Auto resulted Blood Line / Unknown 02/01/2025 5: 39 AM EDT 02/01/2025 5:43 AM EDT us Brooks Morton MD LAB BLOOD ORDER ONLY Final Result [facility]
[address] [place] [address], [place] * Light Blue Top (02/01/2025 5:39 AM EDT) Extra Tube Hold for add-ons. 02/01/2025 5:45 AM EDT [facility] Comment:Auto resulted Blood Line / Unknown 02/01/2025 5: 39 AM EDT 02/01/2025 5:43 AM EDT Brooks Morton MD LAB BLOOD ORDER ONLY Final Result [facility]
[address] [place] [address], [place] * High Sensitivity Troponin T (02/01/2025 5:39 AM EDT) HS Troponin T 13 <22 ng/L 02/01/2025 6:00 AM EDT [facility] Blood Line / Unknown 02/01/2025 5: 39 AM EDT 02/01/2025 5:43 AM EDT Brooks Morton MD LAB BLOOD ORDERABLES Final Result [facility]
[address] [place] [address], [place] * (ABNORMAL) BNP (02/01/2025 5:39 AM EDT) proBNP 2,103.0(H) 0.0 - 450.0 pg/mL 02/01/2025 6:00 AM EDT [facility] Blood Line / Unknown 02/01/2025 5: 39 AM EDT 02/01/2025 5:43 AM EDT Narrative [facility] - 02/01/2025 6:00 AM EDT This assay is used as an aid in the diagnosis of individuals suspected of having heart failure. It can be used as an aid in the diagnosis of acute decompensated heart failure (ADHF) in patients presenting with signs and symptoms of ADHF to the emergency department (ED). In addition, NT-proBNP of <300 pg/mL indicates ADHF is not likely. Age Range Result Interpretation NT-proBNP Concentration (pg/mL: <50 Positive >450 Le 300-450 Negative <300 50-75 Positive >900 Le 300-900 Negative <300 >75 Positive >1800 Le 300-1800 Negative <300 Brooks Morton MD LAB BLOOD ORDERABLES Final Result [facility]
[address] [place] [address], * Lactic Acid, Plasma (02/01/2025 5:39 AM EDT) Lactate 1.8 0.5 - 2.0 mmol/L 02/01/2025 6:06 AM EDT [facility] Blood Line / Unknown 02/01/2025 5: 39 AM EDT 02/01/2025 5:43 AM EDT Brooks Morton MD LAB BLOOD ORDERABLES Final Result [facility]
[address] [place] [address], [place] * HCV Antibody Rfx To Qnt PCR (11/14/2022 10:49 AM EDT) Hepatitis C Ab Non Reactive Non Reactive 11/15/2022 11:10 AM EDT [facility] Blood Structure of right upper limb / Unknown Venipuncture / Unknown 11/14/2022 10:49 AM EDT 11/14/2022 10:52 AM EDT Narrative [facility] - 11/15/2022 11:10 AM EDT Performed at: [address] [place] [address] [address] [place], [place] [id number] Nurse Special: Lavon Major PhD, Phone: [phone] Lianet Bazzi DEVEN LAB BLOOD ORDERABLES Final Result [facility] [address] [place] [address], * (ABNORMAL) Lipid Panel (11/14/2022 10:49 AM EDT) Pathologist [facility] Total Cholesterol 216(H) 0 - 200 mg/dL 11/15/2022 12:05 AM EDT [facility] Triglycerides 105 0 - 150 mg/dL 11/15/2022 12:05 AM EDT [facility] HDL Cholesterol 50 40 - 60 mg/dL 11/15/2022 12:05 AM T [facility] LDL Cholesterol 147(H) 0 - 100 mg/dL 11/15/2022 12:05 AM EDT [facility] VLDL Cholesterol 19 5 - 40 mg/dL 11/15/2022 12:05 AM T [facility] LDL/HDL Ratio 2.90 11/15/2022 12:05 AM T [facility] Blood Structure of right upper limb / Unknown Venipuncture / Unknown 11/14/2022 10:49 AM EDT 11/14/2022 10:52 AM EDT Narrative [facility] - 11/15/2022 12:05 AM EDT Cholesterol Reference Ranges (U.S. Department of Health and Human Services ATP III Classifications) Desirable <200 mg/dL Borderline High 200-239 mg/dL High Risk >240 mg/dL Triglyceride Reference Ranges (U.S. Department of Health and Human Services ATP III Classifications) Normal <150 mg/dL Borderline High 150-199 mg/dL High 200-499 mg/dL Very High >500 mg/dL HDL Reference Ranges (U.S. Department of Health and Human Services ATP III Classifications) Low <40 mg/dl (major risk factor for CHD) High >60 mg/dl ('negative' risk factor for CHD) LDL Reference Ranges (U.S. Department of Health and Human Services ATP III Classifications) Optimal <100 mg/dL Near Optimal 100-129 mg/dL Borderline High 130-159 mg/dL High 160-189 mg/dL Very High >189 mg/dL Lianet Bazzi APRN LAB BLOOD ORDERABLES Final Result [facility]
[address] [place] [address], from Last 3 Months or Most Recently Relevant to Health Maintenance Insurance [facility] PPO Advance Directives * CPR (Attempt to Resuscitate) (Latest Code Status on File) Date Activated Date Inactivated Comments 02/01/2025 7:23 AM 02/02/2025 11:26 AM Question Answer Comments Code Status (Patient has no pulse and is not breathing): CPR (Attempt to Resuscitate) Medical Interventions (Patie nt has pulse or is breathing): Full Support Level Of Support Discussed With: Patient Care Teams Sales Contractor Relationship Specialty Start Date End Date Lianet Bazzi APRN [address] [facility] [address] [place] [address] PCP - General Nurse Practitioner 11/14/22
[2025-05-01 18:06] LABS: Albumin Level 3.7 g/dl (3.5-5.0); Chloride 96 mmol/L (98-107); Potassium 3.2 mmoL/L (3.5-5.1); Sodium 135 mmol/L (136-145)
[2025-05-01 18:08] LABS: Alanine Aminotransferase 88 U/L (12-78); Alkaline Phosphatase 82 U/L (38-126); Aspartate Amino Transferase 52 U/L (17-59); Bilirubin,Total 0.4 mg/dl (0.2-1.3); Blood Urea Nitrogen 9 mg/dl (9-20); Creatinine Clearance Estimated 105 mL/min (50-200); Creatinine,Serum 1.00 mg/dl (0.66-1.25); Estimated Glomerular Filt Rate 80 ml/min (>60); GFR (African American) 97 ML/MIN (>60)
[2025-05-01 18:09] LABS: Albumin/Globulin Ratio 1.3 (1.1-1.8); Anion Gap 15.2 mEq/L (5-15); Calcium 8.1 mg/dl (8.4-10.2); Carbon Dioxide 27 mmol/L (22.0-30.0); Globulin 2.8 g/dL (1.3-3.2); Glucose 97 mg/dl (74-100); Magnesium 1.6 mg/dl (1.6-2.3); Total Protein,Serum 6.5 g/dl (6.3-8.2)
[2025-05-01 18:18] LABS: NT Pro Brain Natriuretic Pep. 7790 pg/mL (0-125)
[2025-05-01 18:21] LABS: Troponin I 0.03 ng/ml (0.00-0.034)
--- NOTE | 2025-05-01 18:22 | CT_ITS ---
PROCEDURE INFORMATION: Exam: CTA Chest With Contrast Exam date and time: 05/01/2025 6:39 PM Age: 49 years old Clinical indication: Shortness of breath; Additional info: SOA, cough TECHNIQUE: Imaging protocol: Computed tomographic angiography of the chest with contrast. Exam focused on the arteries. 3D rendering (Not supervised by radiologist): MIP and/or 3D reconstructed images were created by the technologist. Radiation optimization: All CT scans at this facility use at least one of these dose optimization techniques: automated exposure control; mA and/or kV adjustment per patient size (includes targeted exams where dose is matched to clinical indication); or iterative reconstruction. Contrast material: ISOVUE; Contrast volume: 70 ml; Contrast route: INTRAVENOUS (IV); COMPARISON: CR (CHEST, CXR AP LANDSCAPE) 05/01/2025 5:52 PM FINDINGS: Pulmonary arteries: Normal. No pulmonary emboli. Aorta: Unremarkable. No aortic aneurysm. No aortic dissection. Lungs: Unremarkable. No consolidation. No masses. Pleural spaces: Unremarkable. No pneumothorax. No pleural effusion. Heart: No coronary calcification is noted. Moderate cardiomegaly. No pericardial effusion. Lymph nodes: Multiple small densely calcified mediastinal and hilar lymph nodes consistent with prior granulomatous disease.. No enlarged lymph nodes. Bones/joints: Unremarkable. No acute fracture. Soft tissues: Unremarkable. IMPRESSION: 1. No evidence of pulmonary embolus. 2. Mild diffuse ground-glass opacity noted bilaterally may represent alveolitis, edema or early infiltrate. 3. Moderate cardiomegaly. No coronary calcium noted. Left ventricular dilatation.
[2025-05-01] MEDS: 0.9 % SODIUM CHLORIDE 50 ML VIAL IV (18:41)
[2025-05-01] MEDS: SODIUM CHLORIDE 0.9% 10ML SYR (RAD ONLY) 10 ML IV (18:41)
[2025-05-01] MEDS: IOPAMIDOL-370 (76%);100ML BOTTLE 70 ML IV (18:41)
--- NOTE | 2025-05-01 18:43 | PC.NURSE ---
pt returned from radiology
[2025-05-01] MEDS: POTASSIUM CHLORIDE 20MEQ TAB 60 MEQ PO (18:50)
[2025-05-01 19:15] LABS: Adenovirus,PCR Not Detected (NotDetected); Chlamydophila Pneumoniae, PCR Not Detected (NotDetected); Coronavirus 19, PCR Not Detected (NotDetected); Coronovirus HKU1,PCR Not Detected (NotDetected); Influenza A, PCR Not Detected (NotDetected); Influenza AH1, 2009 Not Detected (NotDetected); Influenza AH1, PCR Not Detected (NotDetected); Influenza AH3,PCR Not Detected (NotDetected); Influenza B, PCR Not Detected (NotDetected); Mycoplasma Pneumoniae, PCR Not Detected (NotDetected); Parainfluenza 1, PCR Not Detected (NotDetected); Parainfluenza 2, PCR Not Detected (NotDetected); Parainfluenza 3, PCR Not Detected (NotDetected); Parainfluenza 4, PCR Not Detected (NotDetected)
[2025-05-01] MEDS: FUROSEMIDE 40MG/4ML VIAL 40 MG IV (19:15)
--- NOTE | 2025-05-01 19:49 | PC.NURSE ---
House notified of admission
--- NOTE | 2025-05-01 20:02 | PC.NURSE ---
Report called to Xochitl JANG for ICU admission
[2025-05-01] MEDS: MILRINONE LACTATE 20 MG in 0.9 % SODIUM CHLORIDE 80 ML 3.06 MG IV (20:05)
--- NOTE | 2025-05-01 20:17 | PC.NURSE ---
pt refused CRE swab upon arrival
--- NOTE | 2025-05-01 20:37 | PC.NURSE ---
pt to icu via wheelchair at 2014
[2025-05-01] MEDS: IPRATROPIUM/ALBUTEROL 3 ML NEB IH (21:36)
[2025-05-01 22:01] LABS: Troponin I 0.02 ng/ml (0.00-0.034)
[2025-05-01] MEDS: guaiFENesin 200MG/10ML SYRUP UDC 200 MG PO (22:11)
--- NOTE | 2025-05-01 22:24 | PC.NURSE ---
Pt arrived on unit at 2013 via wheelchair accompanied by Dalila Collado RN
--- NOTE | 2025-05-01 22:25 | PC.NURSE ---
Called provider, pt is having discomfort with swallowing and coughing. Looked in the pt's mouth, was red no blisters noted. Provider to add medications
--- NOTE | 2025-05-01 23:21 | P.HP_ITS ---
<Statement entered by Tru Marin MD - 05/02/25 14:51> Rounded on patient after nurse practitioner. Personally examined and interviewed patient. Agree with exam findings and care plan as documented. History of Present Illness *Admission Date: 05/01/25 *Reason for visit:: Dyspnea *History of present illness: Eric Vizcaino is a 49-year-old male with no known significant past medical history with the exception of former tobacco use. Reports quitting approximat hugh 1 year ago. Presents to [facility] due to shortness of breath. Reports onset approximately 3 to 4 days ago. States roommate recently contracted the flu. Reports developing a productive cough with congestion, fever and chills 3 days ago. States fever and chills improved but noted shortness of breath significantly became worse throughout the day. Denies any known alleviating. States activity exacerbates shortness of breath. Denies alcohol or any illicit drug use. Denies chest pain, abdominal pain, nausea, vomiting, diarrhea. Initial ED workup included laboratory studies and imaging. Significant laboratory findings included, WBC 17.0, RBC 4.33, hemoglobin 12, hematocrit 36.3, potassium 3.0, calcium 8.1, ALT 88, BNP 7790, full respiratory panel obtained unremarkable for any acute finding. Imaging study included chest x- ray, I personally reviewed and was without any acute finding. Chest CTA; personally reviewed noted, mild diffuse ground glass opacity noted bilaterally which may represent alveolitis, edema or early infiltrate. Moderate cardiomegaly. Xomla-ld-gima ultrasound obtained in the emergency department noted heart showing global left ventricle hypokinesis and diminished left ventricular ejection fraction. No pericardial effusion. EKG shows signs of left ventricular enlargement. ED provider discussed case with on-call cardiology provider Dr. Benitez, who agreed with admission due to findings. Patient received 40 mg IV Lasix, 0.125 of milrinone gtt, 1 mg/kg of Lovenox while in the emergency department. Patient assessed at bedside, he was without acute distress, resting in bed comfortably. Noted mild wheezing, adequate saturations. Patient did also receive 6 mm DuoNeb and 125 mg IV Solu-Medrol while in the emergency department as well. On 2L NC, oxygen sat 92%, hemodynamic stable, transferred to ICU for close monitoring. [facility] Disclaimer: The information contained in this section may have been updated after the patient was seen, as this information can be updated by other users. Social History Smoking Status: Never smoker alcohol intake: never current occupational status: employed and other Travel in the last 8 weeks?: None Have you lived/traveled outside US in past 30 days?: No Contact w/someone who lives/traveled outside US past 30 days?: No Exposure to someone with infectious disease in past 14 days?: No Do you have a fever (greater than 100.4 F or 38 C)?: No Have you tested positive for COVID-19?: No Exposed to someone with COVID-19 in past 14 days?: No Do you have a sore throat?: No Do you have a cough?: No Do you have any weakness?: No Do you have any diarrhea?: No Are you experiencing any unusual bleeding?: No Do you have any muscle aches/pain?: No Do you have any abdominal pain?: No Are you experiencing loss of taste or smell?: No Other Medical History Have you received the Flu Vaccine for this season: Yes Have you received the Pneumonia Vaccine: Yes Review of Systems Review of Systems Review of systems:: pertinent systems reviewed and negative unless documented below Constitutional Constitutional: Reports as per HPI, Reports body ache(s), Reports chills and Reports fever(s) Comments: Subjective fever, body aches and chills which have subsided but was present a few days ago after exposure to the flu Eyes Eyes: Reports as per HPI ENT Ears, Nose, Mouth, and Throat: Reports as per HPI *Cardiovascular Cardiovascular: Reports as per HPI, Reports dyspnea and Reports dyspnea on exertion *Respiratory Respiratory: Reports as per HPI, Reports dyspnea, Reports dyspnea on exertion a nd Reports wheezing *Gastrointestinal Gastrointestinal: Reports system reviewed and no additional complaints, except as documented and Reports as per HPI *Genitourinary Genitourinary: Reports system reviewed and no additional complaints, except as documented and Reports as per HPI *Musculoskeletal Musculoskeletal: Reports system reviewed and no additional complaints, except as documented and Reports as per HPI Integumentary/Breasts Skin/Breast: Reports system reviewed and no additional complaints, except as documented and Reports as per HPI *Neurologic Neurologic: Reports system reviewed and no additional complaints, except as documented and Reports as per HPI Psychiatric Psychiatric: Reports system reviewed and no additional complaints, except as documented and Reports as per HPI Endocrine Endocrine: Reports system reviewed and no additional complaints, except as documented and Reports as per HPI Hematologic/Lymphatic Hematologic/Lymphatic: Reports system reviewed and no additional complaints, except as documented and Reports as per HPI Allergic/Immunologic Allergic/Immunologic: Reports wheezing Meds Home Medications and Allergies Home Medications ?Medication ?Instructions ?Recorded ?Confirmed ?Type No Known Home Medications 05/01/2504/09 History New Prescriptions to Start Prescriptions: Allergies Allergy/AdvReac Type Severity Reaction Status Date / Time No Known Allergies Allergy Verified 05/01/25 17:39 Exam Data for Last 24 hours Vital signs and Labs for Last 24 Hours: Temp Pulse Resp BP Pulse Ox O2 Del Method O2 Flow Rate 98.1 F 87 18 98/63 L 92 L Nasal Cannula 2 05/01/25 20:18 05/01/25 23:00 05/01/25 23:00 05/01/25 23:00 05/01/25 23:00 05/01/25 23:00 05/01/25 23:00 Laboratory Results - last 24 hr 05/01/25 17:31: Chlamy pneumoniae PCR Not detected, Adenovirus (PCR) Not detected, B. pertussis DNA (PCR) Not detected, Coronavirus OC43 (PCR) Not detected, Coronavirus HKU1 (PCR) Not detected, Coronavirus 229E (PCR) Not detected, SARS-CoV-2 (PCR) Not detected 05/01/25 17:31: SARS-CoV-2 (PCR) Not detected, Coronavirus NL63 (PCR) Not detected, Human Metapneumovir PCR Not detected, Influenza A (H1) PCR Not detected, Influ A (H1N1/09) PCR Not detected, Influenza A (H3) PCR Not detected, Influenza Type A (PCR) Not detected, Influenza A Untype (PCR) Not detected, Influenza Type B (PCR) Not detected 05/01/25 17:31: Influenza Type B (PCR) Not detected, M. pneumoniae (PCR) Not detected, Parainfluenza 1 (PCR) Not detected, Parainfluenza 2 (PCR) Not detected, Parainfluenza 3 (PCR) Not detected, Parainfluenza 4 (PCR) Not detected, RSV (PCR) Not detected, Entero/Rhino (PCR) Not detected 05/01/25 17:40: WBC 17.0 H, RBC 4.33 L, Hgb 12.0 L, Hct 36.3 L, MCV 83.8, MCH 27.7, MCHC 33.1, RDW 14.4, Plt Count 331, MPV 10.1, Neut % (Auto) 80.3 H, Lymph % (Auto) 12.2, Mingo % (Auto) 6.4, Eos % (Auto) 0.4, Baso % (Auto) 0.2, Neut # (Auto) 13.7 H, Lymph # (Auto) 2.1, Mingo # (Auto) 1.1 H, Eos # (Auto) 0.1, Baso # (Auto) 0.0, Sodium 135 L, Potassium 3.2 L, Chloride 96 L, Carbon Dioxide 27, Anion Gap 15.2 H, BUN 9, Creatinine 1.00, Estimated Creat Clear 105, Estimated GFR 80, Est GFR ( Amer) 97, Glucose 97, Calcium 8.1 L, Magnesium 1.6, Total Bilirubin 0.4, AST 52, ALT 88 H, Alkaline Phosphatase 82, Troponin I 0.03, NT-Pro-B Natriuret Pep 7790 H, Total Protein 6.5, Albumin 3.7, Globulin 2.8, Albumin/Globulin Ratio 1.3 05/01/25 21:21: Troponin I 0.02 I & O for Last 24 hours: Intake & Output 04/28/25 04/29/25 04/30/25 05/01/25 23:59 23:59 23:59 23:59 Output Total 1350 / 1350 Balance -1350 / -1350 Weight 85.457 kg Constitutional Constitutional: no acute distress *Routine HEENT Exam Head: Present normocephalic and atraumatic Eye: Present EOMI, PERRL and normal accommodation ENT: Present mucous membranes moist Comments: Patient reports sores/ulcer mucosa *Routine Neck Exam Neck: Present full ROM *Routine Respiratory Exam Respiratory: Present wheezes, normal respiratory effort and able to speak in complete sentences *Routine Cardiovascular Exam Cardiovascular: Present Normal S1, Normal S2 and tachycardia *Routine Abdominal Exam Abdominal: Present soft and normoactive bowel sounds *Routine Rectal Exam Rectal:: deferred *Routine Genitalia Exam Genitalia:: deferred *Routine Extremities Exam Extremities: Present full ROM, pulses intact and normal capillary refill Routine Back/Spine/Pelvis Exam Back/Spine: Present full ROM *Routine Skin Exam Skin: Present intact Comments: Mucosal ulcer *Routine Neurological Exam Neurological: Present alert, oriented X3 and CN II-XII intact Routine Psychiatric Exam Psychiatric: Present normal thought process and anxious Assessment and Plan *Assessment and plan (1) Decreased cardiac ejection fraction: Status: Acute Category: Medical Code(s): R93.1 - Abnormal findings on diagnostic imaging of heart and coronary circulation (2) Elevated brain natriuretic peptide (BNP) level: Status: Acute Category: Medical Code(s): R79.89 - Other specified abnormal findings of blood chemistry (3) Acute dyspnea: Status: Acute Category: Medical Code(s): R06.00 - Dyspnea, unspecified (4) Wheezing-associated respiratory infection: Status: Acute Category: Medical Code(s): J98.8 - Other specified respiratory disorders (5) Upper respiratory infection with cough and congestion: Status: Acute Category: Medical Code(s): J06.9 - Acute upper respiratory infection, unspecified (6) Exposure to the flu: Status: Acute Category: Medical Code(s): Z20.828 - Contact with and (suspected) exposure to other viral communicable diseases (7) Leukocytosis: Status: Acute Qualifiers: Leukocytosis type: unspecified Qualified Code(s): D72.829 - Elevated white blood cell count, unspecified Category: Medical Code(s): D72.829 - Elevated white blood cell count, unspecified (8) Hypokalemia: Status: Acute Category: Medical Code(s): E87.6 - Hypokalemia (9) Oral ulcer: Status: Acute Category: Medical Code(s): K12.1 - Other forms of stomatitis (10) Former tobacco use: Status: Acute Category: Social Hx Code(s): Z87.891 - Personal history of nicotine dependence Plan 1. Decreased cardiac ejection fraction/elevated BNP: proBNP elevated at 7790, initial troponin at 0.03. CTA chest w/ no evidence of pulmonary embolism, mild diffuse ground glass opacities noted bilaterally may represent alveolitis edema or early infiltrate, moderate cardiomegaly. Vjsab-[id number]-[id number] finding obtained per ED provider, revealed global hypokinesis with diminished left ventricular ejection fraction. Left ventricle does appear enlarged. No pericardial effusion. EKG shows signs of left ventricular enlargement. ED provider discussed case with Dr. Benitez who agreed with 40 mg of IV Lasix, 0.125 of milrinone drip, and 1 mg/kg of Lovenox and admission. Maintain milrinone drip, strict I's and O's, healthy heart diet low-sodium, fluid restriction 1.5 L. Supplement oxygen as needed to keep saturations greater than 92%. Continuous cardiac monitoring. ICU management for close cardiac monitoring. Cardiology consult placed, appreciate evaluation/input. 2. Acute dyspnea/upper respiratory infection with cough and congestion/wheezing associated respiratory infection/exposure to the flu: Recent contact with individual diagnosed with flu 3 days ago. Initial symptoms of fever, chills, cough, congestion noted to improve but still present. Dyspnea exacerbated over the last day. Suspect acute dyspnea likely multifactorial in nature as noted above, new finding of diminished LV EF, moderate cardiomegaly. Also presents with notable expiratory wheezing throughout on assessment. Received DuoNeb and Solu-Medrol 125 mg in ED. Resume scheduled and PRN nebs for shortness of breath/wheezing. Antitussive, mucolytic for cough/congestion. Pulmonary hygiene. 3. Hypokalemia: Mild decrease, potassium level 3.2, replace per protocol- repeat/trend with morning labs. Phos level added. 4. Oral ulcer: Patient noted soreness/ulcer around mucosal region, difficulty swallowing due to discomfort/soreness. Magic mouthwash. 5. Former tobacco use: Patient reports being a former smoker, quit approximately a year ago. Encouraged continuation of cessation. DVT prophylaxis: Lovenox Healthy heart/low-sodium/fluid restriction diet Full code I personally discussed this patients case with the emergency department provider, Dr. Camacho, agree with admission. 49-year-old male with no significant past medical history with exception of former tobacco user. Presents with dyspnea. Recent contact with individual (roommate) with flu. Significant ER findings included, borderline elevated troponin, EKG with evidence of left ventricular enlargement. CTA chest with mild diffuse ground glass opacities noted bilaterally may represent alveolitis edema or early infiltrate, moderate cardiomegaly. [id number] ultrasound of heart showing global left ventricular hypokinesis and diminished left ventricular EF. ED provider discussed with on-call cardiology provider, Dr. Benitez who agreed w/ admission and initial treatment w/ 40 mg IV Lasix, 0.125 mg milrinone drip and 1 mg/kg of Lovenox. Cardiology to follow-up in the morning per further evaluation. ICU for close cardiac monitoring w/ milrinone drip, continuous cardiac monitoring, 2 L nasal cannula, DuoNebs wheezing/shortness of breath, follow-up labs in the AM. Maintain drip, symptomatic management/treatment.
[2025-05-02] VITALS (24 sets, daily range): BP systolic 93–109; BP diastolic 54–75; PULSE 79–102; RESP 12–23; TEMP 36.6–37; O2SAT 90–96; BMI 27.8
[2025-05-02 00:36] LABS: Troponin I 0.02 ng/ml (0.00-0.034)
[2025-05-02] MEDS: guaiFENesin 200MG/10ML SYRUP UDC 200 MG PO (05:07)
[2025-05-02 06:22] LABS: Hematocrit 36.4 % (42.0-52.0); Hemoglobin 11.7 g/dL (14.1-18.0); Immature Granulocytes % 0.6 %; Mean Corpuscular HGB Conc 32.1 g/dL (31.8-35.4); Mean Corpuscular Hemoglobin 27.1 pg (27.0-31.2); Mean Corpuscular Volume 84.5 fl (80-94); Nucleated Red Blood Cells % 0 %; Platelet Count 306 K/mm3 (142-424); Red Blood Count 4.31 M/mm3 (4.60-6.20); Red Cell Distribution Width-SD 45.2 fL; White Blood Count 13.9 K/mm3 (4.8-10.8)
--- NOTE | 2025-05-02 07:08 | CA_ITS ---
APPROVED REPORT EXAM: Comprehensive 2D, Doppler, and color-flow Echocardiogram Bag Bundler: Laurence Suazo CRT Ht: 5 ft 9 in Wt: 188lbs BSA: 2.01 BP: 110/83 mmHg Indications: sob recent flu exposure, ex smoker. Father and uncle have/had WPW. Father at 39. Echo Enhancing Agent Indication: Endocardial border delineation Agent(s) / Amount(s) Used: Definity 2 cc Comments: Definity given 2D Dimensions LA Volume 74.30 mL LA Volume Index 36.10 mL/m2 (M/F) 16-34 M-Mode Dimensions RVDd 3.20 cm (0.9-2.6) LA Diam 3.95 cm (1.9-4.0) LVDd 6.39 cm (3.5-5.7) LVDs 5.39 cm (3.5-5.7) IVSd 0.66 cm (0.6-1.1) PWd 0.98 cm (0.6-1.1) EF (Teich) 32.30% FS 15.60% EDV (Teich) 207.80 mL TAPSE 1.84 (<1.7) ESV (Teich) 140.70 mL LV Diastology E Decel Time 77 (160-240 msec) E/A Ratio 3.86 MED A' 4.80 cm/s LAT A' 7.50 cm/s Aortic Valve AO Peak GR. 6.40 mmHg Mitral Valve MV E Max Maurizio. 123.0 (40-130 cm/s) MV A Velocity 32.0 (40-130 cm/s) E/A Ratio 3.86 MV PHT 22.0 ms Pulmonary Valve PV Peak Velocity 155.0 (50-150 cm/s) Tricuspid Valve TR P. Velocity 262.00 cm/s RAP Estimate 10.00 mmHg RVSP 37.40 mmHg Left Ventricle The left ventricle is moderately dilated. Left ventricular systolic function is severely reduced. There is normal left ventricular wall thickness. There is severe global hypokinesis present. Grade 3 diastolic dysfunction is present. Ultrasound enhancing agent demonstrates presence of a small echodensity in the LV apical wall, measuring approximately 0.8 cm in its largest dimension. LVEF is 10-15% Right Ventricle The right ventricle is moderately dilated. The right ventricular systolic function is moderately reduced. Atria The left atrium is mildly dilated. The right atrium is mildly dilated. There is no color Doppler evidence of interatrial shunt. Aortic Valve The aortic valve opens well. There is no hemodynamically significant aortic valvular stenosis. Trace aortic regurgitation is present. Mitral Valve The mitral valve is normal in structure. No evidence of mitral valve stenosis. Mild mitral regurgitation is present. Tricuspid Valve The tricuspid valve leaflets are thin and pliable. Mild tricuspid regurgitation. RVSP is 30-35 mmHg. Pulmonic Valve The pulmonary valve is grossly normal in structure. Trace pulmonic valve regurgitation is present. Great Vessels The aortic root is normal in size. IVC is normal in size and collapses >50% with inspiration. Pericardium There is no pericardial effusion. Other Information Study Quality: Fair Conclusion Moderate LV dilation with severe reduction in LV systolic function (LVEF 10-15%). Grade 3 diastolic dysfunction is present. Moderate RV dilation with moderate reduction in RV function. Biatrial dilation. Mild MR, mild TR. Ultrasound enhancing agent demonstrates presence of a small echodensity in the LV apical wall, measuring approximately 0.8 cm in its largest dimension. In the setting of recent stroke, the above findings are suggestive of cardioembolic source due to severe cardiomyopathy. The patient is already on full dose anticoagulation, which should be continued. If clinically safe and feasible, STEF may be suggested to evaluate for additional etiologies of stroke. Electronically signed by : Shea Carbajal MD 05/03/2025 00:24:42
[2025-05-02] MEDS: IPRATROPIUM/ALBUTEROL 3 ML NEB IH (08:20)
[2025-05-02] MEDS: DEFINITY US ECHO CONTRAST 2ML INJ 2 MG IV (08:50)
[2025-05-02] MEDS: MAGIC MOUTHWASH 300ML BOTTLE 15 ML PO (09:00)
[2025-05-02 09:01] LABS: Alanine Aminotransferase 83 U/L (12-78); Albumin Level 3.7 g/dl (3.5-5.0); Albumin/Globulin Ratio 1.3 (1.1-1.8); Alkaline Phosphatase 94 U/L (38-126); Anion Gap 13.8 mEq/L (5-15); Aspartate Amino Transferase 47 U/L (17-59); Bilirubin,Total 0.5 mg/dl (0.2-1.3); Blood Urea Nitrogen 10 mg/dl (9-20); Calcium 8.2 mg/dl (8.4-10.2); Carbon Dioxide 23 mmol/L (22.0-30.0); Chloride 98 mmol/L (98-107); Creatinine Clearance Estimated 138 mL/min (50-200); Creatinine,Serum 0.80 mg/dl (0.66-1.25); Estimated Glomerular Filt Rate 104 ml/min (>60); GFR (African American) 125 ML/MIN (>60); Globulin 2.8 g/dL (1.3-3.2); Glucose 158 mg/dl (74-100); Potassium 3.8 mmoL/L (3.5-5.1); Sodium 131 mmol/L (136-145); Total Protein,Serum 6.5 g/dl (6.3-8.2)
[2025-05-02] MEDS: FUROSEMIDE 40MG/4ML VIAL 40 MG IV (09:01)
[2025-05-02 09:43] LABS: Magnesium 1.7 mg/dl (1.6-2.3)
--- NOTE | 2025-05-02 09:56 | MR_ITS ---
FINAL REPORT TECHNIQUE: Multiple projection images of the neck arterial vasculature were obtained without and with contrast. The raw data images were also reviewed CLINICAL HISTORY: right sided visual field loss. x1hour stroke COMPARISON: None FINDINGS: The right common carotid artery has an unremarkable appearance without evidence of stenosis or occlusion. The right internal carotid artery has an unremarkable appearance without evidence of stenosis or occlusion. The right external carotid artery is patent. The right vertebral artery is patent without evidence of stenosis. The left common carotid artery has an unremarkable appearance without evidence of stenosis or occlusion. The left internal carotid artery is patent without evidence of stenosis or occlusion. The left external carotid artery is patent. The left vertebral artery is patent without evidence of stenosis. IMPRESSION: Unremarkable MR angiogram of the neck without evidence of stenosis or occlusion. Reviewed, Interpreted and Dictated by Sherrie Ybarra MD Transcribed by Marielos Sylvester Authenticated and [facility]
--- NOTE | 2025-05-02 09:56 | MR_ITS ---
FINAL REPORT TECHNIQUE: Multiplanar and multisequence imaging of the brain was obtained before and after contrast administration. CLINICAL HISTORY: loss of right visual field.x1hour stroke COMPARISON: None FINDINGS: Overall image quality is limited secondary to motion artifact. Brain parenchymal: There is no mass effect or midline shift. There is subtle T2 abnormality in the medial aspect of the left occipital lobe and in the posterior insular cortex. The diffusion weighted images reveal the signal to be increased, while signal is decreased on the ADC map, consistent with an acute infarct in the left HAND BOOKBINDER distribution. The cerebellum and brainstem are without acute abnormality. Ventricles: The ventricles are symmetric in size and configuration without hydrocephalus. Extra-axial spaces: No extra-axial fluid collections. Diffusion imaging: Restricted diffusion in the medial aspect of the left occipital lobe and posterior insular cortex consistent with an acute infarct in the left HAND BOOKBINDER territory. Flow voids: Flow voids within the major intracranial vessels are preserved. Soft tissues: Soft tissues are without acute abnormality. Post contrast imaging: No abnormal enhancement. IMPRESSION: T2 abnormality in the medial aspect of the left occipital lobe and posterior insular cortex seen on diffusion weighted images, consistent with an acute infarct in the left posterior cerebral artery distribution territory. Reviewed, Interpreted and Dictated by Sherrie Ybarra MD Transcribed by Marielos Sylvester Authenticated and [facility]
--- OUTSIDE RECORDS SUMMARY | 2025-05-02 10:40 | XMS_ITS | Clinical Summary ---
Author Organization Healthcare [place] [address] Care Team Providers Care Oral And Maxillofacial Surgery Name Role Phone Pcp, No Primary Care Provider Unavailabl e Allergies No known active allergies Social History Tobacco Use Types Packs/Day Years Used Date Smoking Tobacco: Never Assessed Sex and Gender Information Value Date Recorded Sex Assigned at Not on file Legal Sex Male 8:34 PM EDT Gender Identity Not on file Sexual Orientation Not on file Last Filed Vital Signs Vital Sign Reading Time Taken Comments Blood Pressure 140/84 02/14/2023 8:40 AM EDT Pulse 72 02/14/2023 8:40 AM EDT Temperature 36.3 C (97.4 F) 02/14/2023 8:40 AM EDT Respiratory Rate 14 02/14/2023 8:40 AM EDT Oxygen Saturation 98% 02/14/2023 8:40 AM EDT Inhaled Oxygen Concentration - - Weight 99.1 kg (218 lb 7.6 oz) 02/14/2023 8:40 A M EDT Height 175.3 cm (5' 9 ) 02/14/2023 8:40 AM EDT Body Mass Index 32.26 02/14/2023 8:40 AM EDT Plan of Treatment Health Maintenance Due Date Last Done Comments [facility]-Depression Screening 1977 [facility]-HIV Screening 1977 [facility]-Hepatitis C Screening 1977 [facility]-/Child/Adol SDOH Screenings 1977 [facility]-Obesity Intervention 1983 [facility]- SDOH Screenings 1995 [facility]-Adult SDOH Screenings 1995 [facility]-Hepatitis B Vaccines (1 of 3 - 19+ 3-dose series) 1996 CT Colonography 2022 Colonoscopy 2022 FIT-DNA 2022 FIT 2022 FOBT 2022 Sigmoidoscopy 2022 [facility]-Colorectal Cancer Screening 2022 [id number] Vaccine (3 - season) 2025 01/18/2021, 12/18/2020 [facility]-Influenza Vaccine (#1) 2025 [facility]-Zoster Vaccines (1 of 2) 2027 [facility]-DTaP,Tdap,and Td Vaccine s (2 - Td or Tdap) 11/14/2032 11/14/2022 HPV Vaccines Aged Out No longer eligi ble based on patient's age to complete this topic [facility]-HIB Vaccines Aged Out No longer e ligible based on patient's age to complete this topic [facility]-Hepatitis A Vaccines Aged Out No longer eligible based on patient's age to complete this topic [facility]-IPV Vaccines Aged Out No longer e ligible based on patient's age to complete this topic [facility]-Pneumococcal Vaccine: Pediatrics (0 to 5 Years) and At-Risk Patients (6 to 49 Years) Aged Out No longer eligible b ased on patient's age to complete this topic [facility]-Rotavirus Vaccines Aged Out No lo nger eligible based on patient's age to complete this topic Insurance [address] Care Teams Oral And Maxillofacial Surgery Relationship Specialty Start Date End Date Pcp, No [address] [place] [address] PCP - General Family Medicine 02/14/23
--- OUTSIDE RECORDS SUMMARY | 2025-05-02 10:40 | XMS_ITS | Clinical Summary ---
[facility] Address [address] [place] [address] Care Team Providers Care Mineralogy Professor Name Role Phone Lianet Bazzi APRN Primary [...] Type Department Care Team Description 04/17/2025 Refill [facility] [address] [facility] [address] [place] [address] Aliyah Bazzi PA-C 02/16/2025 Telephone [facility] PRIMARY CARE [address] [facility] [address] [place] [address] Lianet Bazzi APRN 02/08/2025 11:30 AM EDT Office Visit [facility] [address] [facility] [address] [place] [address] Lianet Bazzi APRN Screen for colon cancer (Primary Dx); Community acquired pneumonia of right lower lobe of lung 02/08/2025 Travel 02/03/2025 Transitional Care Management Telephone Encounter [facility] NURSE CALL CENTER [address] [place] [address] Adrianne Barrera RN 02/02/2025 Readmission Management [facility] [address] [place] [address] Wandy Baker RN 02/01/2025 5:32 AM EDT - 02/02/2025 9:16 AM EDT Hospital Encounter [facility] [address] [place] [address] Brooks Morton MD [place], Rene [...] EDT RESPIRATORY PANEL PCR W/ COVID-19 (SARS-COV-2), CHEMISTRY PROFESSOR SWAB IN UTM/VTP, 2 HR TAT STAT [...] of5 resultswithin the time period is included. [facility] Onbase ECG ORDERABLES Final Result * (ABNORMAL) CBC Auto Differential (02/02/2025 5:38 AM EDT) Only the most recent of2 resultswithin the time period is included. WBC 10.29 3.40 - 10.80 10*3/mm3 02/02/2025 5:48 AM [facility] RBC 4.50 4.14 - 5.80 10*6/mm3 02/02/2025 5:48 AM [facility] Hemoglobin 12.8(L) 13.0 - 17.7 g/dL 02/02/2025 5:48 AM [facility] Hematocrit 39.0 37.5 - 51.0 % 02/02/2025 5:48 AM [facility] MCV 86.7 79.0 - 97.0 fL 02/02/2025 5:48 AM [facility] MCH 28.4 26.6 - 33.0 pg 02/02/2025 5:48 AM [facility] MCHC 32.8 31.5 - 35.7 g/dL 02/02/2025 5:48 AM [facility] RDW 14.0 12.3 - 15.4 % 02/02/2025 5:48 AM [facility] RDW-SD 45.2 37.0 - 54.0 fl 02/02/2025 5:48 AM [facility] MPV 10.2 6.0 - 12.0 fL 02/02/2025 5:48 AM [facility] Platelets 232 140 - 450 10*3/mm3 02/02/2025 5:48 AM [facility] Neutrophil % 74.7 42.7 - 76.0 % 02/02/2025 5:48 AM [facility] Lymphocyte % 15.9(L) 19.6 - 45.3 % 02/02/2025 5:48 AM [facility] Monocyte % 7.8 5.0 - 12.0 % 02/02/2025 5:48 AM [facility] Eosinophil % 1.2 0.3 - 6.2 % 02/02/2025 5:48 AM [facility] Basophil % 0.3 0.0 - 1.5 % 02/02/2025 5:48 AM [facility] Immature Grans % 0.1 0.0 - 0.5 % 02/02/2025 5:48 AM EDT [facility] Neutrophils, Absolute 7.69(H) 1.70 - 7.00 10*3/mm3 02/02/2025 5:48 AM EDT [facility] Lymphocytes, Absolute 1.64 0.70 - 3.10 10*3/mm3 02/02/2025 5:48 AM EDT [facility] Monocytes, Absolute 0.80 0.10 - 0.90 10*3/mm3 02/02/2025 5:48 AM EDT [facility] Eosinophils, Absolute 0.12 0.00 - 0.40 10*3/mm3 02/02/2025 5:48 AM EDT [facility] Basophils, Absolute 0.03 0.00 - 0.20 10*3/mm3 02/02/2025 5:48 AM EDT [facility] Immature Grans, Absolute 0.01 0.00 - 0.05 10*3/mm3 02/02/2025 5:48 AM EDT [facility] Blood Structure of left upper limb / Unknown Venipuncture / Unknown 02/02/2025 5:38 AM EDT 02/02/2025 5:45 AM EDT us Eder Torres APRN LAB BLOOD ORDERABLES Earlene l Result [facility]
[address] [place] [address], * (ABNORMAL) Comprehensive Metabolic Panel (02/02/2025 5:38 AM EDT) Only the most recent of2 resultswithin the time period is included. Glucose 126(H) 65 - 99 mg/dL 02/02/2025 6:04 AM EDT [facility] BUN 13.2 6.0 - 20.0 mg/dL 02/02/2025 6:04 AM EDT [facility] Creatinine 0.74(L) 0.76 - 1.27 mg/dL 02/02/2025 6:04 AM [facility] Sodium 133(L) 136 - 145 mmol/L 02/02/2025 6:04 AM [facility] Potassium 4.0 3.5 - 5.2 mmol/L 02/02/2025 6:04 AM [facility] Chloride 99 98 - 107 mmol/L 02/02/2025 6:04 AM [facility] CO2 21.5(L) 22.0 - 29.0 mmol/L 02/02/2025 6:04 AM [facility] Calcium 9.2 8.6 - 10.5 mg/dL 02/02/2025 6:04 AM [facility] Total Protein 6.8 6.0 - 8.5 g/dL 02/02/2025 6:04 AM [facility] Albumin 4.1 3.5 - 5.2 g/dL 02/02/2025 6:04 AM [facility] ALT (SGPT) 15 1 - 41 U/L 02/02/2025 6:04 AM [facility] AST (SGOT) 17 1 - 40 U/L 02/02/2025 6:04 AM [facility] Alkaline Phosphatase 82 39 - 117 U/L 02/02/2025 6:04 AM [facility] Total Bilirubin 0.5 0.0 - 1.2 mg/dL 02/02/2025 6:04 AM [facility] Globulin 2.7 gm/dL 02/02/2025 6:04 AM [facility] A/G Ratio 1.5 g/dL 02/02/2025 6:04 AM [facility] BUN/Creatinine Ratio 17.8 7.0 - 25.0 02/02/2025 6:04 AM [facility] Anion Gap 12.5 5.0 - 15.0 mmol/L 02/02/2025 6:04 AM [facility] eGFR 112.5 >60.0 mL/min/1.7 3 02/02/2025 6:04 AM [facility] Blood Structure of left upper limb / Unknown Venipuncture / Unknown 02/02/2025 5:38 AM EDT 02/02/2025 5:45 AM EDT Narrative [facility] - 02/02/2025 6:04 AM EDT [...] APRN LAB BLOOD ORDERABLES Earlene l Result [facility]
[address] [facility] [address] [place] [address] * High Sensitivity Troponin T 1Hr (02/01/2025 6:41 AM EDT) HS Troponin T 13 <22 ng/L 02/01/2025 6:59 AM EDT [facility] Troponin T Numeric Delta 0 Abnormal if >/=3 ng/L 02/01/2025 6:59 AM EDT [facility] Blood Line / Unknown 02/01/2025 6: 41 AM EDT 02/01/2025 6:43 AM EDT Narrative [facility] - 02/01/2025 6:59 AM EDT [...] Morton MD LAB BLOOD ORDERABLES Final Result [facility]
[address] [place] [address], * Magnesium (02/01/2025 6:41 AM EDT) Magnesium 1.7 1.6 - 2.6 mg/dL 02/01/2025 8:12 AM EDT [facility] Blood Line / Unknown 02/01/2025 6: 41 AM EDT 02/01/2025 6:43 AM EDT Eder Torres APRN LAB BLOOD ORDERABLES Earlene l Result Performing Organization Address City/[facility]/ZIP Co de Phone Number [facility]
[address] [place] [address], [place] * ECG 12 Lead Dyspnea (02/01/2025 [...] (ABNORMAL) Respiratory Panel PCR w/COVID-19(SARS-CoV-2) KEVIN/RUDOLPH/KRISHAN/PAD/COR/CHRISTINE In-House, CHEMISTRY PROFESSOR Swab in UTM/VTM, 2 HR TAT - Swab, Nasopharynx (02/01/2025 6:09 AM EDT) ADENOVIRUS, PCR Not Detected Not Detected BIOFIRE FILMARRAY 02/01/2025 7:01 AM EDT [facility] Coronavirus 229E Not Detected Not Detected BIOFIRE FILMARRAY 02/01/2025 7:01 AM EDT [facility] Coronavirus HKU1 Not Detected Not Detected BIOFIRE FILMARRAY 02/01/2025 7:01 AM EDT [facility] Coronavirus NL63 Not Detected Not Detected BIOFIRE FILMARRAY 02/01/2025 7:01 AM EDT [facility] Coronavirus OC43 Not Detected Not Detected BIOFIRE FILMARRAY 02/01/2025 7:01 AM EDT [facility] COVID19 Not Detected Not Detected - Ref. Range BIOFIRE FILMARRAY 02/01/2025 7:01 AM EDT [facility] Human Metapneumovirus Not Detected Not Detected BIOFIRE FILMARRAY 02/01/2025 7:01 AM EDT [facility] Human Rhinovirus/Enterov irus Detected(A) Not Detected BIOFIRE FILMARRAY 02/01/2025 7:01 AM [facility] Influenza A PCR Not Detected Not Detected BIOFIRE FILMARRAY 02/01/2025 7:01 AM [facility] Influenza B PCR Not Detected Not Detected BIOFIRE FILMARRAY 02/01/2025 7:01 AM [facility] Parainfluenza Virus 1 Not Detected Not Detected BIOFIRE FILMARRAY 02/01/2025 7:01 AM [facility] Parainfluenza Virus 2 Not Detected Not Detected BIOFIRE FILMARRAY 02/01/2025 7:01 AM [facility] Parainfluenza Virus 3 Not Detected Not Detected BIOFIRE FILMARRAY 02/01/2025 7:01 AM [facility] Parainfluenza Virus 4 Not Detected Not Detected BIOFIRE FILMARRAY 02/01/2025 7:01 AM [facility] RSV, PCR Not Detected Not Detected BIOFIRE FILMARRAY 02/01/2025 7:01 AM [facility] Bordetella pertussis pcr Not Detected Not Detected BIOFIRE FILMARRAY 02/01/2025 7:01 AM [facility] Bordetella parapertussis PCR Not Detected Not Detected BIOFIRE FILMARRAY 02/01/2025 7:01 AM [facility] Chlamydophila pneumoniae PCR Not Detected Not Detected BIOFIRE FILMARRAY 02/01/2025 7:01 AM [facility] Mycoplasma pneumo by PCR Not Detected Not Detected BIOFIRE FILMARRAY 02/01/2025 7:01 AM [facility] Swab Nasopharyngeal structure / Unknown Collection / Unknown 02/01/2025 6:09 AM EDT 02/01/2025 6:12 AM EDT [facility] - 02/01/2025 7:01 AM EDT In [...] MICROBIOLOGY - GENERAL ORDDereje CORREIA Final Result [facility]
[address] [facility] [address] [place] [address], [place] * CT Angiogram Chest Pulmonary Embolism (02/01/2025 6:04 AM EDT) Anatomical Region Laterality Modality Chest N/A Computed Tomogra phy 02/01/2025 6:28 AM EDT Impressions 02/01/2025 6:33 AM EDT Impression: Multifocal pneumonia. No evidence of pulmonary embolism. Electronically Signed: Ellis Hector MD 02/01/2025 6:33 AM EDT Workstation ID: [id number] Narrative 02/01/2025 6:[address] ANGIOGRAM [...] MD 02/01/2025 6:33 AM EDT Workstation ID: [id number] Brooks Morton MD IMG CT ORDERABLES Final Res ult * XR Chest 1 View (02/01/2025 5:46 AM EDT) Anatomical Region Laterality Modality Body N/A Radiographic Latoya ging 02/01/2025 5:51 AM EDT Impressions 02/01/2025 5:51 AM EDT Impression: Right lower lobe pneumonia. Electronically Signed: Ellis Hector MD 02/01/2025 5:51 AM EDT Workstation ID: [id number] Narrative 02/01/2025 5:51 AM EDT XR CHEST [...] MD 02/01/2025 5:51 AM EDT Workstation ID: [id number] Brooks Morton MD IMG DIAGNOSTIC IMAGING [facility] Final Result * Le Top (02/01/2025 5:39 AM EDT) Extra Tube Hold for add-ons. 02/01/2025 5:45 AM EDT [facility] Comment:Auto resulted. Blood Line / Unknown 02/01/2025 5: 39 AM EDT 02/01/2025 5:43 AM EDT Brooks Morton MD LAB BLOOD ORDER ONLY Final Result [facility]
[address] [facility] [address] [place] [address], * [facility] (02/01/2025 5:39 AM EDT) Extra Tube Hold for add-ons. 02/01/2025 5:45 AM EDT [facility] Comment:Auto resulted. Blood Line / Unknown 02/01/2025 5: 39 AM EDT 02/01/2025 5:43 AM EDT Brooks Morton MD LAB BLOOD ORDER ONLY Final Result Performing Organization Address City/[facility]/ZIP Co de Phone Number [facility]
[address] [facility] [address] [place] [address], [place] * Green Top (Gel) (02/01/2025 5:39 AM EDT) Extra Tube Hold for add-ons. 02/01/2025 5:45 AM EDT [facility] Comment:Auto resulted. Blood Line / Unknown 02/01/2025 5: 39 AM EDT 02/01/2025 5:43 AM EDT Brooks Morton MD LAB BLOOD ORDER ONLY Final Result Performing Organization Address [facility] Co de Phone Number [facility]
[address] [facility] [address] [place] [address], [place] * (ABNORMAL) Procalcitonin (02/01/2025 5:39 AM EDT) Procalcitonin 0.36(H) 0.00 - 0.25 ng/mL 02/01/2025 6:25 AM EDT [facility] Blood Line / Unknown 02/01/2025 5: 39 AM EDT 02/01/2025 5:43 AM EDT us Brooks Morton MD LAB BLOOD ORDERABLES Final Result Performing Organization Address City/[facility]/ZIP Co de Phone Number [facility]
[address] [facility] [address] [place] [address], [place] * Lavender Top (02/01/2025 5:39 AM EDT) Extra Tube hold for add-on 02/01/2025 5:45 AM EDT [facility] Comment:Auto resulted Blood Line / Unknown 02/01/2025 5: 39 AM EDT 02/01/2025 5:43 AM EDT us Brooks Morton MD LAB BLOOD ORDER ONLY Final Result [facility]
[address] [place] [address], [place] * Light Blue Top (02/01/2025 5:39 AM EDT) Extra Tube Hold for add-ons. 02/01/2025 5:45 AM EDT [facility] Comment:Auto resulted Blood Line / Unknown 02/01/2025 5: 39 AM EDT 02/01/2025 5:43 AM EDT Brooks Morton MD LAB BLOOD ORDER ONLY Final Result [facility]
[address] [place] [address], [place] * High Sensitivity Troponin T (02/01/2025 5:39 AM EDT) HS Troponin T 13 <22 ng/L 02/01/2025 6:00 AM EDT [facility] Blood Line / Unknown 02/01/2025 5: 39 AM EDT 02/01/2025 5:43 AM EDT Brooks Morton MD LAB BLOOD ORDERABLES Final Result [facility]
[address] [place] [address], [place] * (ABNORMAL) BNP (02/01/2025 5:39 AM EDT) proBNP 2,103.0(H) 0.0 - 450.0 pg/mL 02/01/2025 6:00 AM EDT [facility] Blood Line / Unknown 02/01/2025 5: 39 AM EDT 02/01/2025 5:43 AM EDT Narrative [facility] - 02/01/2025 6:00 AM EDT [...] Morton MD LAB BLOOD ORDERABLES Final Result [facility]
[address] [place] [address], * Lactic Acid, Plasma (02/01/2025 5:39 AM EDT) Lactate 1.8 0.5 - 2.0 mmol/L 02/01/2025 6:06 AM EDT [facility] Blood Line / Unknown 02/01/2025 5: 39 AM EDT 02/01/2025 5:43 AM EDT Brooks Morton MD LAB BLOOD ORDERABLES Final Result [facility]
[address] [place] [address], [place] * HCV Antibody Rfx To Qnt PCR (11/14/2022 10:49 AM EDT) Hepatitis C Ab Non Reactive Non Reactive 11/15/2022 11:10 AM EDT [facility] Blood Structure of right upper limb / Unknown Venipuncture / Unknown 11/14/2022 10:49 AM EDT 11/14/2022 10:52 AM EDT Narrative [facility] - 11/15/2022 11:10 AM EDT Performed at: [address] [place] [address] [place] [address] [place], [place] [id number] Lobby Attendant: Lavon Major PhD, Phone: [phone] Lianet Bazzi DEVEN LAB BLOOD ORDERABLES Final Result [facility] [address] [place] [address], * (ABNORMAL) Lipid Panel (11/14/2022 10:49 AM EDT) Pathologist [facility] Total Cholesterol 216(H) 0 - 200 mg/dL 11/15/2022 12:05 AM EDT [facility] Triglycerides 105 0 - 150 mg/dL 11/15/2022 12:05 AM EDT [facility] HDL Cholesterol 50 40 - 60 mg/dL 11/15/2022 12:05 AM T [facility] LDL Cholesterol 147(H) 0 - 100 mg/dL 11/15/2022 12:05 AM EDT [facility] VLDL Cholesterol 19 5 - 40 mg/dL 11/15/2022 12:05 AM T [facility] LDL/HDL Ratio 2.90 11/15/2022 12:05 AM T [facility] Blood Structure of right upper limb / Unknown Venipuncture / Unknown 11/14/2022 10:49 AM EDT 11/14/2022 10:52 AM EDT Narrative [facility] - 11/15/2022 12:05 AM EDT Cholesterol [...] Bazzi APRN LAB BLOOD ORDERABLES Final Result [facility]
[address] [place] [address], from Last 3 Months or Most Recently Relevant to Health Maintenance Insurance [facility] PPO Advance Directives * CPR (Attempt to Resuscitate) (Latest Code Status on File) Date Activated Date Inactivated Comments 02/01/2025 7:23 AM 02/02/2025 11:26 AM Question Answer Comments Code Status (Patient has no pulse and is not breathing): CPR (Attempt to Resuscitate) Medical Interventions (Patie nt has pulse or is breathing): Full Support Level Of Support Discussed With: Patient Care Teams Mineralogy Professor Relationship Specialty Start Date End Date Lianet Bazzi APRN [address] [facility] [address] [place] [address] PCP - General Nurse Practitioner 11/14/22
--- OUTSIDE RECORDS SUMMARY | 2025-05-02 10:40 | XMS_ITS | Encounter Summary ---
[facility] Address [address] [place] [address] Care Team Providers Care Commercial Representative Name Role Phone Lianet Bazzi APRN Primary Care Provider [phone] Reason for Visit * Reason Onset Date Comments Med Refill 04/17/2025 Encounter Details Date Type Department Care Team (Late st Contact Info) Description 04/17/2025 Refill [facility] [address] [facility] [address] [place], [place] [id number] Aliyah Bazzi PAMargothC [address] [facility] [address] [place] [address] Social History Tobacco Use Types Packs/Day Years [...] on filedocumented in this encounter Care Teams Commercial Representative Relationship Specialty Start Date End Date Lianet Bazzi APRN [address] [facility] [address] [place] [address] PCP - General Nurse Practitioner 11/14/22 documented as of this encounter
--- OUTSIDE RECORDS SUMMARY | 2025-05-02 10:40 | XMS_ITS | Referral Summary ---
Author Organization [employer] ([place], [place], [place], [place], [place]) Address [address] [place] [address] Care Team Providers Care Galley Hand Name Role Phone [facility] Primary Care Provider Allergies No known active allergies Medications AZITHROmycin (ZITHROMAX) 250 MG tablet Take 2 tabs on day 1 and 1 tab on days 2 through 5. 6 tablet 09/29/2023 Active Immunizations Immunization Administration Dates Next Due Tdap 08/31/2024 Social History Tobacco Use Types Packs/Day Years Used Date Smoking Tobacco: Former Cigarettes Passive Smoke Exposure: Never Smokeless Tobacco: Never Tobacco Cessation:Counseling Given: Not Answered Alcohol Use Standard Drinks/Week Comments Never 0 (1 standard drink = 0.6 oz pur e alcohol) Family and Community Support Answer Eliud e Recorded Help with Day to Day Activities Not on file 09/29/2023 Feeling Lonely or Isolated Not on file 09/28 Educational Attainment Answer Date Bruno rded Speak language other than Samoan at home Not on file 09/29/2023 Want help with school or training Not on file 09/29/2023 Substance Use Answer Date Recorded Used prescription meds for non-medical reasons N ot on file 09/29/2023 Used illegal drugs past 12 months Not on file 09/29/2023 Sex and Gender Information Value Date Recorded Sex Assigned at Not on file Legal Sex Male 3:38 PM CDT Gender Identity Not on file Sexual Orientation Not on file Last Filed Vital Signs Vital Sign Reading Time Taken Comments Blood Pressure 105/67 08/31/2024 5:00 PM EDT Pulse 84 08/31/2024 5:00 PM EDT Temperature 36.8 C (98.2 F) 08/31/2024 5:00 PM EDT Respiratory Rate 18 08/31/2024 5:00 PM EDT Oxygen Saturation 98% 08/31/2024 5:00 PM EDT Inhaled Oxygen Concentration - - Weight 81.6 kg (180 lb) 08/31/2024 5:00 PM EDT Height 175.3 cm (5' 9 ) 08/31/2024 5:00 PM EDT Body Mass Index 26.58 08/31/2024 5:00 PM EDT Plan of Treatment Not on file Care Teams Galley Hand Relationship Specialty Start Date End Date [facility] [place] [address] PCP - General 08/31/24
--- OUTSIDE RECORDS SUMMARY | 2025-05-02 10:40 | XMS_ITS | Clinical Summary ---
Author Organization [facility] ([place], [place], [place], [place], [place]) Address [address] [place] [address] Care Team Providers Care Caul Fat Puller Name Role Phone [facility] Primary Care Provider Allergies [...] Date Bruno rded Speak language other than Djiboutian at home Not on file 09/29/2023 Want [...] 08/31/2024 5:00 PM EDT Plan of Treatment Health Maintenance Due Date Last Done Comments CT Colonography 1977 Colonoscopy 1977 Colorectal Cancer Screening 1977 FOBT/FIT 1977 Fit-DNA (Cologuard) 1977 Sigmoidoscopy 1977 Depression Screening (12+) 1989 HIV Screening 1992 Hepatitis C Screening 1995 COVID-19 VACCINE (3 - 2024-2 6 season) 2025 01/18/2021, 12/18/2020 Influenza Vaccine (#1) 2025 Tobacco Cessation Counseling and Screening (12+) 08/31/2025 08/31/2024 Lipid Panel 11/15/2027 11/14/2022 DTAP/TDAP/TD VACCINES (3 - T d or Tdap) 08/31/2034 08/31/2024, 11/14/2022 Pneumococcal Vaccine: 0-49 Years Aged Out 11/14/2022 No longer eligible b ased on patient's age to complete this topic Care Teams Caul Fat Puller Relationship Specialty Start Date End Date [facility], [facility] [place] [address] PCP - General 08/31/24
[2025-05-02] MEDS: GADOTERIDOL INJ 20ML SYRINGE 17 ML IV (11:08)
[2025-05-02] MEDS: 0.9 % SODIUM CHLORIDE 50 ML VIAL 20 ML IV (11:08)
[2025-05-02] MEDS: SODIUM CHLORIDE 0.9% 10ML SYR (RAD ONLY) 10 ML IV (11:08)
--- NOTE | 2025-05-02 11:56 | PC.NURSE ---
MD Marin on the phone with [facility] and they are accepting to tele, Awaiting bed assignment.
--- NOTE | 2025-05-02 12:01 | PC.NURSE ---
At 0956 the care team went into pt's room to see patient and he reported new onset blurred vision that has decreased to almost complete vision loss on the right side. NIH scale was a 1. STAT MRI of the brain ordered. pt taken down with myself, superintendent house, and nurse clinic business manager. Finger stick is 141. Pt remains alert and oriented with no deficits.
[2025-05-02 12:08] LABS: POC Glucose,Bedside 141 gm/dL (70-110)
[2025-05-02 12:24] LABS: Microscopic, Urine URINE MICROSCOPIC (MICROSCOPIC)
[2025-05-02] MEDS: DOPAMINE HCL/D5W 250 ML 8.01 MG IV (12:25)
--- NOTE | 2025-05-02 12:32 | P.DS_ITS ---
General Admission date:: 05/01/25 HPI HPI HPI: Eric Vizcaino is a 49-year-old male with no known significant past medical history with the exception of former tobacco use. Reports quitting approximately 1 year ago. Presents to [facility] due to shortness of breath. Reports onset approximately 3 to 4 days ago. States roommate recently contracted the flu. Reports developing a productive cough with congestion, fever and chills 3 days ago. States fever and chills improved but noted shortness of breath significantly became worse throughout the day. Denies any known alleviating. States activity exacerbates shortness of breath. Denies alcohol or any illicit drug use. Denies chest pain, abdominal pain, nausea, vomiting, diarrhea. Initial ED workup included laboratory studies and imaging. Significant laborator y findings included, WBC 17.0, RBC 4.33, hemoglobin 12, hematocrit 36.3, potassium 3.0, calcium 8.1, ALT 88, BNP 7790, full respiratory panel obtained unremarkable for any acute finding. Imaging study included chest x-ray, I personally reviewed and was without any acute finding. Chest CTA; personally reviewed noted, mild diffuse ground glass opacity noted bilaterally which may represent alveolitis, edema or early infiltrate. Moderate cardiomegaly. [id number] ultrasound obtained in the emergency department noted heart showing global left ventricle hypokinesis and diminished left ventricular ejection fraction. No pericardial effusion. EKG shows signs of left ventricular enlargement. ED provider discussed case with on-call cardiology provider Dr. Benitez, who agreed with admission due to findings. Patient received 40 mg IV Lasix, 0.125 of milrinone gtt, 1 mg/kg of Lovenox while in the emergency department. Patient assessed at bedside, he was without acute distress, resting in bed comfortably. Noted mild wheezing, adequate saturations. Patient did also receive 6 mm DuoNeb and 125 mg IV Solu-Medrol while in the emergency department as well. On 2L NC, oxygen sat 92%, hemodynamic stable, transferred to ICU for close monitoring. Exam Data for Last 24 hours Vital signs and Labs for Last 24 Hours: Temp Pulse Resp BP Pulse Ox O2 Del Method O2 Flow Rate 98.4 F 90 18 102/63 L 94 L Room Air 2 05/02/25 08:00 05/02/25 12:00 05/02/25 12:00 05/02/25 12:00 05/02/25 12:00 05/02/25 12:08 05/02/25 08:00 Laboratory Results - last 24 hr 05/01/25 17:31: Chlamy pneumoniae PCR Not detected, Adenovirus (PCR) Not detected, B. pertussis DNA (PCR) Not detected, Coronavirus OC43 (PCR) Not detected, Coronavirus HKU1 (PCR) Not detected, Coronavirus 229E (PCR) Not detected, SARS-CoV-2 (PCR) Not detected 05/01/25 17:31: SARS-CoV-2 (PCR) Not detected, Coronavirus NL63 (PCR) Not detected, Human Metapneumovir PCR Not detected, Influenza A (H1) PCR Not detected, Influ A (H1N1/09) PCR Not detected, Influenza A (H3) PCR Not detected, Influenza Type A (PCR) Not detected, Influenza A Untype (PCR) Not detected, Influenza Type B (PCR) Not detected 05/01/25 17:31: Influenza Type B (PCR) Not detected, M. pneumoniae (PCR) Not detected, Parainfluenza 1 (PCR) Not detected, Parainfluenza 2 (PCR) Not detected, Parainfluenza 3 (PCR) Not detected, Parainfluenza 4 (PCR) Not detected, RSV (PCR) Not detected, Entero/Rhino (PCR) Not detected 05/01/25 17:40: WBC 17.0 H, RBC 4.33 L, Hgb 12.0 L, Hct 36.3 L, MCV 83.8, MCH 27.7, MCHC 33.1, RDW 14.4, Plt Count 331, MPV 10.1, Neut % (Auto) 80.3 H, Lymph % (Auto) 12.2, Sunflower % (Auto) 6.4, Eos % (Auto) 0.4, Baso % (Auto) 0.2, Neut # (Auto) 13.7 H, Lymph # (Auto) 2.1, Sunflower # (Auto) 1.1 H, Eos # (Auto) 0.1, Baso # (Auto) 0.0, Sodium 135 L, Potassium 3.2 L, Chloride 96 L, Carbon Dioxide 27, Anion Gap 15.2 H, BUN 9, Creatinine 1.00, Estimated Creat Clear 105, Estimated GFR 80, Est GFR ( Amer) 97, Glucose 97, Calcium 8.1 L, Magnesium 1.6, Total Bilirubin 0.4, AST 52, ALT 88 H, Alkaline Phosphatase 82, Troponin I 0.03, NT-Pro-B Natriuret Pep 7790 H, Total Protein 6.5, Albumin 3.7, Globulin 2.8, Albumin/Globulin Ratio 1.3 05/01/25 21:21: Troponin I 0.02 05/02/25 00:09: Troponin I 0.02 05/02/25 04:45: WBC 13.9 H, RBC 4.31 L, Hgb 11.7 L, Hct 36.4 L, MCV 84.5, MCH 27.1, MCHC 32.1, RDW 14.6, Plt Count 306, MPV 10.8 H, Neut % (Auto) 94.0 H, Lymph % (Auto) 4.1 L, Sunflower % (Auto) 1.2 L, Eos % (Auto) 0.0 L, Baso % (Auto) 0.1, Neut # (Auto) 13.0 H, Lymph # (Auto) 0.6 L, Sunflower # (Auto) 0.2, Eos # (Auto) 0.0, Baso # (Auto) 0.0, Sodium 131 L, Potassium 3.8, Chloride 98, Carbon Dioxide 23, Anion Gap 13.8, BUN 10, Creatinine 0.80, Estimated Creat Clear 138, Estimated GFR 104, Est GFR ( Amer) 125 D, Glucose 158 H D, Calcium 8.2 L , Magnesium 1.7, Total Bilirubin 0.5, AST 47, ALT 83 H, Alkaline Phosphatase 94, Total Protein 6.5, Albumin 3.7, Globulin 2.8, Albumin/Globulin Ratio 1.3 05/02/25 12:01: POC Glucose 141 H I & O for Last 24 hours: Intake & Output 04/29/25 04/30/25 05/01/25 05/02/25 23:59 23:59 23:59 23:59 Intake Total 326 / 326 Output Total 1350 / 1350 2175 / 2175 Balance -1350 / -1350 -1849 / -1849 Weight 85.457 kg 85.45 kg Results Data Completed and Pending Labs on day of discharge: Labs from last 24 hours 11/05/02/25 05/02/25 12:01 04:45 00:09 WBC 13.9 H RBC 4.31 L Hgb 11.7 L Hct 36.4 L MCV 84.5 MCH 27.1 MCHC 32.1 RDW 14.6 Plt Count 306 MPV 10.8 H Neut % (Auto) 94.0 H Lymph % (Auto) 4.1 L Sunflower % (Auto) 1.2 L Eos % (Auto) 0.0 L Baso % (Auto) 0.1 Neut # (Auto) 13.0 H Lymph # (Auto) 0.6 L Sunflower # (Auto) 0.2 Eos # (Auto) 0.0 Baso # (Auto) 0.0 Sodium 131 L Potassium 3.8 Chloride 98 Carbon Dioxide 23 Anion Gap 13.8 BUN 10 Creatinine 0.80 Estimated Creat Clear 138 Estimated GFR 104 Est GFR ( Amer) 125 D Glucose 158 H D POC Glucose 141 H Calcium 8.2 L Magnesium 1.7 Total Bilirubin 0.5 AST 47 ALT 83 H Alkaline Phosphatase 94 Troponin I 0.02 NT-Pro-B Natriuret Pep Total Protein 6.5 Albumin 3.7 Globulin 2.8 Albumin/Globulin Ratio 1.3 Chlamy pneumoniae PCR Adenovirus (PCR) B. pertussis DNA (PCR) Coronavirus OC43 (PCR) Coronavirus HKU1 (PCR) Coronavirus 229E (PCR) SARS-CoV-2 (PCR) Coronavirus NL63 (PCR) Human Metapneumovir PCR Influenza A (H1) PCR Influ A (H1N1/09) PCR Influenza A (H3) PCR Influenza Type A (PCR) Influenza A Untype (PCR) Influenza Type B (PCR) M. pneumoniae (PCR) Parainfluenza 1 (PCR) Parainfluenza 2 (PCR) Parainfluenza 3 (PCR) Parainfluenza 4 (PCR) RSV (PCR) Entero/Rhino (PCR) 05/01/25 05/01/25 05/01/25 21:21 17:40 17:31 WBC 17.0 H RBC 4.33 L Hgb 12.0 L Hct 36.3 L MCV 83.8 MCH 27.7 MCHC 33.1 RDW 14.4 Plt Count 331 MPV 10.1 Neut % (Auto) 80.3 H Lymph % (Auto) 12.2 Sunflower % (Auto) 6.4 Eos % (Auto) 0.4 Baso % (Auto) 0.2 Neut # (Auto) 13.7 H Lymph # (Auto) 2.1 Sunflower # (Auto) 1.1 H Eos # (Auto) 0.1 Baso # (Auto) 0.0 Sodium 135 L Potassium 3.2 L Chloride 96 L Carbon Dioxide 27 Anion Gap 15.2 H BUN 9 Creatinine 1.00 Estimated Creat Clear 105 Estimated GFR 80 Est GFR ( Amer) 97 Glucose 97 POC Glucose Calcium 8.1 L Magnesium 1.6 Total Bilirubin 0.4 AST 52 ALT 88 H Alkaline Phosphatase 82 Troponin I 0.02 0.03 NT-Pro-B Natriuret Pep 7790 H Total Protein 6.5 Albumin 3.7 Globulin 2.8 Albumin/Globulin Ratio 1.3 Chlamy pneumoniae PCR Adenovirus (PCR) B. pertussis DNA (PCR) Coronavirus OC43 (PCR) Coronavirus HKU1 (PCR) Coronavirus 229E (PCR) SARS-CoV-2 (PCR) Coronavirus NL63 (PCR) Human Metapneumovir PCR Influenza A (H1) PCR Influ A (H1N1/09) PCR Influenza A (H3) PCR Influenza Type A (PCR) Influenza A Untype (PCR) Influenza Type B (PCR) Not detected M. pneumoniae (PCR) Not detected Parainfluenza 1 (PCR) Not detected Parainfluenza 2 (PCR) Not detected Parainfluenza 3 (PCR) Not detected Parainfluenza 4 (PCR) Not detected RSV (PCR) Not detected Entero/Rhino (PCR) Not detected 05/01/25 05/01/25 17:31 17:31 WBC RBC Hgb Hct MCV MCH MCHC RDW Plt Count MPV Neut % (Auto) Lymph % (Auto) Sunflower % (Auto) Eos % (Auto) Baso % (Auto) Neut # (Auto) Lymph # (Auto) Sunflower # (Auto) Eos # (Auto) Baso # (Auto) Sodium Potassium Chloride Carbon Dioxide Anion Gap BUN Creatinine Estimated Creat Clear Estimated GFR Est GFR ( Amer) Glucose POC Glucose Calcium Magnesium Total Bilirubin AST ALT Alkaline Phosphatase Troponin I NT-Pro-B Natriuret Pep Total Protein Albumin Globulin Albumin/Globulin Ratio Chlamy pneumoniae PCR Not detected Adenovirus (PCR) Not detected B. pertussis DNA (PCR) Not detected Coronavirus OC43 (PCR) Not detected Coronavirus HKU1 (PCR) Not detected Coronavirus 229E (PCR) Not detected SARS-CoV-2 (PCR) Not detected Not detected Coronavirus NL63 (PCR) Not detected Human Metapneumovir PCR Not detected Influenza A (H1) PCR Not detected Influ A (H1N1/09) PCR Not detected Influenza A (H3) PCR Not detected Influenza Type A (PCR) Not detected Influenza A Untype (PCR) Not detected Influenza Type B (PCR) Not detected M. pneumoniae (PCR) Parainfluenza 1 (PCR) Parainfluenza 2 (PCR) Parainfluenza 3 (PCR) Parainfluenza 4 (PCR) RSV (PCR) Entero/Rhino (PCR) DS: Diagnosis Discharge Diagnosis (1) Decreased cardiac ejection fraction: Status: Acute Code(s): R93.1 - Abnormal findings on diagnostic imaging of heart and coronary circulation (2) Elevated brain natriuretic peptide (BNP) level: Status: Acute Code(s): R79.89 - Other specified abnormal findings of blood chemistry (3) Acute dyspnea: Status: Acute Code(s): R06.00 - Dyspnea, unspecified (4) Wheezing-associated respiratory infection: Status: Acute Code(s): J98.8 - Other specified respiratory disorders (5) Upper respiratory infection with cough and congestion: Status: Acute Code(s): J06.9 - Acute upper respiratory infection, unspecified (6) Exposure to the flu: Status: Acute Code(s): Z20.828 - Contact with and (suspected) exposure to other viral communicable diseases (7) Leukocytosis: Status: Acute Code(s): D72.829 - Elevated white blood cell count, unspecified Qualifiers: Leukocytosis type: unspecified Qualified Code(s): D72.829 - Elevated white blood cell count, unspecified (8) Hypokalemia: Status: Acute Code(s): E87.6 - Hypokalemia (9) Oral ulcer: Status: Acute Code(s): K12.1 - Other forms of stomatitis (10) Former tobacco use: Status: Acute Code(s): Z87.891 - Personal history of nicotine dependence Meds Home Medications and Allergies Home Medications ?Medication ?Instructions ?Recorded ?Confirmed ?Type No Known Home Medications 05/01/2504/09 History New Prescriptions to Start Prescriptions: Allergies Allergy/AdvReac Type Severity Reaction Status Date / Time No Known Allergies Allergy Verified 05/01/25 17:39 Discharge Plan Follow up Plan Prescriptions/Medication Reconciliation: No Action No Known Home Medications Patient Discharge Instructions Print Language: Indonesian Providers Primary Care Provider: Provider,Referral Admit Provider: Jb Ocampo Attending Provider: Jb Ocampo
--- NOTE | 2025-05-02 12:33 | PC.NURSE ---
spoke with [facility] and informed them that pt was started on a dopamine drip to increase his BP per the accepting MD. They stated that they would call back with an ICU bed assignment.
--- NOTE | 2025-05-02 12:43 | PC.NURSE ---
spoke to [facility] pt accepted to 2B icu number for report [phone]
--- NOTE | 2025-05-02 12:48 | PC.NURSE ---
attempted to give report, they stated nurse was on lunch and they would call back in 10 minutes
--- NOTE | 2025-05-02 13:05 | PC.NURSE ---
report given to SUHAIL Oseguera at [facility].
[2025-05-02 13:12] LABS: Bilirubin,Urine Negative (Negative); Color,Urine YELLOW (Yellow); Glucose,Urine (UA) Negative (Negative); Ketones,Urine Negative (Negative); Leukocyte Esterase,Urine Negative (Negative); PH,Urine 7.0 (5.0-8.5); Protein,Urine Negative (Negative); Specific Gravity, Urine <= 1.005 (1.005-1.030); Urobilinogen,Urine 0.2 EU/dl (0.2)
--- NOTE | 2025-05-02 13:16 | P.DS_ITS ---
<Statement entered by Tru Marin MD - 05/02/25 14:50> Rounded on patient after nurse practitioner. Personally examined and interviewed patient. Agree with exam findings and care plan as documented. My exam on rounds, patient was found to have right sided homonymous hemianopsia. Absent right visual field. Remainder of neuroexam was normal. Did not have any other focal motor or neurologic deficits. Remainder of cranial nerves intact. Stat MRI obtained showing acute left-sided occipital stroke. Case discussed with [facility] in [place]. Patient to be transferred for neurology evaluation and further management along with further management of his heart failure. Was switched from milrinone to dobutamine with goal of increasing blood pressure to systolic greater than 120 to improve cerebral perfusion. After discussion with neurology at [facility], we were advised not to initiate TNK as patient was already on therapeutic Lovenox. Thrombolytics were not admi nistered. Plan communicated to patient and brother at bedside. General Admission date:: 05/01/25 Discharge date: 05/02/25 HPI HPI HPI: Eric Vizcaino is a 49-year-old male with no known significant past medical hi story with the exception of former tobacco use. Reports quitting approximately 1 year ago. Presents to [facility] due to shortness of breath. Reports onset approximately 3 to 4 days ago. States roommate recently contracted the flu. Reports developing a productive cough with congestion, fever and chills 3 days ago. States fever and chills improved but noted shortness of breath significantly became worse throughout the day. Denies any known alleviating. States activity exacerbates shortness of breath. Denies alcohol or any illicit drug use. Denies chest pain, abdominal pain, nausea, vomiting, diarrhea. Initial ED workup included laboratory studies and imaging. Significant laboratory findings included, WBC 17.0, RBC 4.33, hemoglobin 12, hematocrit 36.3, potassium 3.0, calcium 8.1, ALT 88, BNP 7790, full respiratory panel obtained unremarkable for any acute finding. Imaging study included chest x- ray, I personally reviewed and was without any acute finding. Chest CTA; personally reviewed noted, mild diffuse ground glass opacity noted bilaterally which may represent alveolitis, edema or early infiltrate. Moderate cardiomegaly. [id number]-[id number] ultrasound obtained in the emergency department noted heart showing global left ventricle hypokinesis and diminished left ventricular ejection fraction. No pericardial effusion. EKG shows signs of left ventricular enlargement. ED provider discussed case with on-call cardiology provider Dr. Benitez, who agreed with admission due to findings. Patient received 40 mg IV Lasix, 0.125 of milrinone gtt, 1 mg/kg of Lovenox while in the emergency department. Patient assessed at bedside, he was without acute distress, resting in bed comfortably. Noted mild wheezing, adequate saturations. Patient did also receive 6 mm DuoNeb and 125 mg IV Solu-Medrol while in the emergency department as well. On 2L NC, oxygen sat 92%, hemodynamic stable, transferred to ICU for close monitoring. Hospital Course Hospital Course Hospital Course: Mr. Vizcaino is a 49-year-old male who was admitted from the emergency department for new new onset acute decompensated heart failure. Patient presented to the emergency department with shortness of breath yesterday evening, [id number]-[id number] ultrasound showed decreased cardiac ejection fraction and enlarged left ventricle. Cardiology was consulted from the emergency room who recommended admission, milrinone drip at 0.125, therapeutic Lovenox 1 mg/kg, and Lasix 40 mg twice daily. Additionally his BNP was elevated at 7790. Hospital medicine agreed to admit the patient to the ICU for further management of his heart failure. Initial WBC was 17.0, trending downward to 13.9. Mild anemia with a hemoglobin of 11.7, patient hyponatremic with sodium of 131, potassium originally 3.2, replaced day of transfer 3.8. Troponins negative. Patient was placed on cardiac telemetry and supplemental O2 as needed for oxygen saturation greater than 92%. Patient was also placed on strict I's and O's with heart healthy low-sodium diet, and fluid restriction of 1.5 L daily. Cardiology consulted for further recommendations. During assessment this morning patient complained of blurry vision, around 9 AM patient states that he cannot see out of his right eye. Patient was assessed shortly after and had no right visual anderson. NIH stroke scale of 2 for complete right sided hemianopia. Stat brain MRI and neck MRA obtained. Brain MRI findings of T2 abnormality in the medial aspect of the left occipital lobe and posterior insular cortex seen on diffusion weighted images, consistent with an acute infarct in the left posterior cerebral artery distribution territory. At this time [facility] neurology was contacted for further recommendations/transfer. Patient was accepted to the [facility] telemetry floor for neurology consult. Recommendations for no lytics at this time. Additional recommendations were for systolic blood pressure greater than 120, patient was started on a dopamine drip to increase blood pressure. Patient is stable at this time. Patient was started on therapeutic Lovenox on admission 1 mg/kg twice daily. Patient did receive 1 dose yesterday evening and this morning. Patient denies chest pain, shortness of breath, abdominal pain, nausea, vomiting. Patient was transported via EMS to [facility]. Exam Data for Last 24 hours Vital signs and Labs for Last 24 Hours: Temp Pulse Resp BP Pulse Ox O2 Del Method O2 Flow Rate 98.4 F 95 H 17 99/75 L 96 Nasal Cannula 3 05/02/25 08:00 05/02/25 13:01 05/02/25 13:01 05/02/25 13:01 05/02/25 13:01 05/02/25 13:01 05/02/25 13:01 Laboratory Results - last 24 hr 05/01/25 17:31: Chlamy pneumoniae PCR Not detected, Adenovirus (PCR) Not detected, B. pertussis DNA (PCR) Not detected, Coronavirus OC43 (PCR) Not detected, Coronavirus HKU1 (PCR) Not detected, Coronavirus 229E (PCR) Not detected, SARS-CoV-2 (PCR) Not detected 05/01/25 17:31: SARS-CoV-2 (PCR) Not detected, Coronavirus NL63 (PCR) Not detected, Human Metapneumovir PCR Not detected, Influenza A (H1) PCR Not detected, Influ A (H1N1/09) PCR Not detected, Influenza A (H3) PCR Not detected, Influenza Type A (PCR) Not detected, Influenza A Untype (PCR) Not detected, Influenza Type B (PCR) Not detected 05/01/25 17:31: Influenza Type B (PCR) Not detected, M. pneumoniae (PCR) Not detected, Parainfluenza 1 (PCR) Not detected, Parainfluenza 2 (PCR) Not detected, Parainfluenza 3 (PCR) Not detected, Parainfluenza 4 (PCR) Not detected, RSV (PCR) Not detected, Entero/Rhino (PCR) Not detected 05/01/25 17:40: WBC 17.0 H, RBC 4.33 L, Hgb 12.0 L, Hct 36.3 L, MCV 83.8, MCH 27.7, MCHC 33.1, RDW 14.4, Plt Count 331, MPV 10.1, Neut % (Auto) 80.3 H, Lymph % (Auto) 12.2, Swain % (Auto) 6.4, Eos % (Auto) 0.4, Baso % (Auto) 0.2, Neut # (Auto) 13.7 H, Lymph # (Auto) 2.1, Swain # (Auto) 1.1 H, Eos # (Auto) 0.1, Baso # (Auto) 0.0, Sodium 135 L, Potassium 3.2 L, Chloride 96 L, Carbon Dioxide 27, Anion Gap 15.2 H, BUN 9, Creatinine 1.00, Estimated Creat Clear 105, Estimated GFR 80, Est GFR ( Amer) 97, Glucose 97, Calcium 8.1 L, Magnesium 1.6, Total Bilirubin 0.4, AST 52, ALT 88 H, Alkaline Phosphatase 82, Troponin I 0.03, NT-Pro-B Natriuret Pep 7790 H, Total Protein 6.5, Albumin 3.7, Globulin 2.8, Albumin/Globulin Ratio 1.3 05/01/25 21:21: Troponin I 0.02 05/02/25 00:09: Troponin I 0.02 05/02/25 04:45: WBC 13.9 H, RBC 4.31 L, Hgb 11.7 L, Hct 36.4 L, MCV 84.5, MCH 27.1, MCHC 32.1, RDW 14.6, Plt Count 306, MPV 10.8 H, Neut % (Auto) 94.0 H, Lymph % (Auto) 4.1 L, Swain % (Auto) 1.2 L, Eos % (Auto) 0.0 L, Baso % (Auto) 0.1, Neut # (Auto) 13.0 H, Lymph # (Auto) 0.6 L, Swain # (Auto) 0.2, Eos # (Auto) 0.0, Baso # (Auto) 0.0, Sodium 131 L, Potassium 3.8, Chloride 98, Carbon Dioxide 23, Anion Gap 13.8, BUN 10, Creatinine 0.80, Estimated Creat Clear 138, Estimated GFR 104, Est GFR ( Amer) 125 D, Glucose 158 H D, Calcium 8.2 L , Magnesium 1.7, Total Bilirubin 0.5, AST 47, ALT 83 H, Alkaline Phosphatase 94, Total Protein 6.5, Albumin 3.7, Globulin 2.8, Albumin/Globulin Ratio 1.3 05/02/25 12:01: POC Glucose 141 H 05/02/25 : Urine Color Yellow, Urine Appearance Clear, Urine pH 7.0, Ur Specific Tabor <= 1.005, Urine Protein Negative, Urine Glucose (UA) Negative, Urine Ketones Negative, Urine Blood Negative, Urine Nitrate Negative, Urine Bilirubin Negative, Urine Urobilinogen 0.2, Ur Leukocyte Esterase Negative I & O for Last 24 hours: Intake & Output 04/29/25 04/30/25 05/01/25 05/02/25 23:59 23:59 23:59 23:59 Intake Total 376.011 / 376.011 Output Total 1350 / 1350 2875 / 2875 Balance -1350 / -1350 -2498.989 / -2498.989 Weight 85.457 kg 85.45 kg Constitutional Constitutional: mild distress, average body habitus and cooperative *Routine HEENT Exam Head: Present normocephalic Eye: Present other (no visual anderson in the right eye) ENT: Present mucous membranes moist *Routine Neck Exam Neck: Present supple; Absent lymphadenopathy *Routine Respiratory Exam Respiratory: Present wheezes and normal respiratory effort; Absent respiratory distress *Routine Cardiovascular Exam Cardiovascular: Present RRR *Routine Abdominal Exam Abdominal: Present soft and normoactive bowel sounds; Absent tenderness *Routine Extremities Exam Extremities: Absent cyanosis, clubbing or edema *Routine Skin Exam Skin: Present warm; Absent rash *Routine Neurological Exam Neurological: Present alert and oriented X3 Results Data Completed and Pending Labs on day of discharge: Labs from last 24 hours 05/02/25 05/02/25 05/02/25 Unknown 12:01 04:45 WBC 13.9 H RBC 4.31 L Hgb 11.7 L Hct 36.4 L MCV 84.5 MCH 27.1 MCHC 32.1 RDW 14.6 Plt Count 306 MPV 10.8 H Neut % (Auto) 94.0 H Lymph % (Auto) 4.1 L Swain % (Auto) 1.2 L Eos % (Auto) 0.0 L Baso % (Auto) 0.1 Neut # (Auto) 13.0 H Lymph # (Auto) 0.6 L Swain # (Auto) 0.2 Eos # (Auto) 0.0 Baso # (Auto) 0.0 Sodium 131 L Potassium 3.8 Chloride 98 Carbon Dioxide 23 Anion Gap 13.8 BUN 10 Creatinine 0.80 Estimated Creat Clear 138 Estimated GFR 104 Est GFR ( Amer) 125 D Glucose 158 H D POC Glucose 141 H Calcium 8.2 L Magnesium 1.7 Total Bilirubin 0.5 AST 47 ALT 83 H Alkaline Phosphatase 94 Troponin I NT-Pro-B Natriuret Pep Total Protein 6.5 Albumin 3.7 Globulin 2.8 Albumin/Globulin Ratio 1.3 Urine Color Yellow Urine Appearance Clear Urine pH 7.0 Ur Specific Tabor <= 1.005 Urine Protein Negative Urine Glucose (UA) Negative Urine Ketones Negative Urine Blood Negative Urine Nitrate Negative Urine Bilirubin Negative Urine Urobilinogen 0.2 Ur Leukocyte Esterase Negative Chlamy pneumoniae PCR Adenovirus (PCR) B. pertussis DNA (PCR) Coronavirus OC43 (PCR) Coronavirus HKU1 (PCR) Coronavirus 229E (PCR) SARS-CoV-2 (PCR) Coronavirus NL63 (PCR) Human Metapneumovir PCR Influenza A (H1) PCR Influ A (H1N1/09) PCR Influenza A (H3) PCR Influenza Type A (PCR) Influenza A Untype (PCR) Influenza Type B (PCR) M. pneumoniae (PCR) Parainfluenza 1 (PCR) Parainfluenza 2 (PCR) Parainfluenza 3 (PCR) Parainfluenza 4 (PCR) RSV (PCR) Entero/Rhino (PCR) 05/02/25 05/01/25 05/01/25 00:09 21:21 17:40 WBC 17.0 H RBC 4.33 L Hgb 12.0 L Hct 36.3 L MCV 83.8 MCH 27.7 MCHC 33.1 RDW 14.4 Plt Count 331 MPV 10.1 Neut % (Auto) 80.3 H Lymph % (Auto) 12.2 Swain % (Auto) 6.4 Eos % (Auto) 0.4 Baso % (Auto) 0.2 Neut # (Auto) 13.7 H Lymph # (Auto) 2.1 Swain # (Auto) 1.1 H Eos # (Auto) 0.1 Baso # (Auto) 0.0 Sodium 135 L Potassium 3.2 L Chloride 96 L Carbon Dioxide 27 Anion Gap 15.2 H BUN 9 Creatinine 1.00 Estimated Creat Clear 105 Estimated GFR 80 Est GFR ( Amer) 97 Glucose 97 POC Glucose Calcium 8.1 L Magnesium 1.6 Total Bilirubin 0.4 AST 52 ALT 88 H Alkaline Phosphatase 82 Troponin I 0.02 0.02 0.03 NT-Pro-B Natriuret Pep 7790 H Total Protein 6.5 Albumin 3.7 Globulin 2.8 Albumin/Globulin Ratio 1.3 Urine Color Urine Appearance Urine pH Ur Specific Tabor Urine Protein Urine Glucose (UA) Urine Ketones Urine Blood Urine Nitrate Urine Bilirubin Urine Urobilinogen Ur Leukocyte Esterase Chlamy pneumoniae PCR Adenovirus (PCR) B. pertussis DNA (PCR) Coronavirus OC43 (PCR) Coronavirus HKU1 (PCR) Coronavirus 229E (PCR) SARS-CoV-2 (PCR) Coronavirus NL63 (PCR) Human Metapneumovir PCR Influenza A (H1) PCR Influ A (H1N1/09) PCR Influenza A (H3) PCR Influenza Type A (PCR) Influenza A Untype (PCR) Influenza Type B (PCR) M. pneumoniae (PCR) Parainfluenza 1 (PCR) Parainfluenza 2 (PCR) Parainfluenza 3 (PCR) Parainfluenza 4 (PCR) RSV (PCR) Entero/Rhino (PCR) 05/01/25 05/01/25 05/01/25 17:31 17:31 17:31 WBC RBC Hgb Hct MCV MCH MCHC RDW Plt Count MPV Neut % (Auto) Lymph % (Auto) Swain % (Auto) Eos % (Auto) Baso % (Auto) Neut # (Auto) Lymph # (Auto) Swain # (Auto) Eos # (Auto) Baso # (Auto) Sodium Potassium Chloride Carbon Dioxide Anion Gap BUN Creatinine Estimated Creat Clear Estimated GFR Est GFR ( Amer) Glucose POC Glucose Calcium Magnesium Total Bilirubin AST ALT Alkaline Phosphatase Troponin I NT-Pro-B Natriuret Pep Total Protein Albumin Globulin Albumin/Globulin Ratio Urine Color Urine Appearance Urine pH Ur Specific Tabor Urine Protein Urine Glucose (UA) Urine Ketones Urine Blood Urine Nitrate Urine Bilirubin Urine Urobilinogen Ur Leukocyte Esterase Chlamy pneumoniae PCR Not detected Adenovirus (PCR) Not detected B. pertussis DNA (PCR) Not detected Coronavirus OC43 (PCR) Not detected Coronavirus HKU1 (PCR) Not detected Coronavirus 229E (PCR) Not detected SARS-CoV-2 (PCR) Not detected Not detected Coronavirus NL63 (PCR) Not detected Human Metapneumovir PCR Not detected Influenza A (H1) PCR Not detected Influ A (H1N1/09) PCR Not detected Influenza A (H3) PCR Not detected Influenza Type A (PCR) Not detected Influenza A Untype (PCR) Not detected Influenza Type B (PCR) Not detected Not detected M. pneumoniae (PCR) Not detected Parainfluenza 1 (PCR) Not detected Parainfluenza 2 (PCR) Not detected Parainfluenza 3 (PCR) Not detected Parainfluenza 4 (PCR) Not detected RSV (PCR) Not detected Entero/Rhino (PCR) Not detected DS: Diagnosis Discharge Diagnosis (1) Decreased cardiac ejection fraction: Status: Acute Code(s): R93.1 - Abnormal findings on diagnostic imaging of heart and coronary circulation (2) Elevated brain natriuretic peptide (BNP) level: Status: Acute Code(s): R79.89 - Other specified abnormal findings of blood chemistry (3) Acute dyspnea: Status: Acute Code(s): R06.00 - Dyspnea, unspecified (4) Wheezing-associated respiratory infection: Status: Acute Code(s): J98.8 - Other specified respiratory disorders (5) Upper respiratory infection with cough and congestion: Status: Acute Code(s): J06.9 - Acute upper respiratory infection, unspecified (6) Exposure to the flu: Status: Acute Code(s): Z20.828 - Contact with and (suspected) exposure to other viral communicable diseases (7) Leukocytosis: Status: Acute Code(s): D72.829 - Elevated white blood cell count, unspecified Qualifiers: Leukocytosis type: unspecified Qualified Code(s): D72.829 - Elevated white blood cell count, unspecified (8) Hypokalemia: Status: Acute Code(s): E87.6 - Hypokalemia (9) Oral ulcer: Status: Acute Code(s): K12.1 - Other forms of stomatitis (10) Former tobacco use: Status: Acute Code(s): Z87.891 - Personal history of nicotine dependence (11) Occipital infarction: Status: Acute Code(s): I63.9 - Cerebral infarction, unspecified Meds Home Medications and Allergies Home Medications ?Medication ?Instructions ?Recorded ?Confirmed ?Type No Known Home Medications 05/01/2504/09 History New Prescriptions to Start Prescriptions: Allergies Allergy/AdvReac Type Severity Reaction Status Date / Time No Known Allergies Allergy Verified 05/01/25 17:39 Discharge Plan Disposition Patient Disposition: Xfer Short-Term Hosp Condition: Serious Discharge Order Discharge Orders: Discharge Order (Routine); Ordered 05/02/25 Ordered By: Shavonne Miranda Follow up Plan Prescriptions/Medication Reconciliation: Continued No Known Home Medications Problem Reconciliation Problems Reviewed?: Yes Patient Discharge Instructions ACTIVITY: Continue current activity DIET: continue same diet Stand Alone Forms: Transfer Record Print Language: Danish Providers Primary Care Provider: Provider,Referral Admit Provider: Jb Ocampo Attending Provider: Jb Ocampo
--- NOTE | 2025-05-02 14:21 | P.CONCA_ITS ---
History of Present Illness History of Present Illness Consult date: 05/02/25 Consult reason: shortness of breath Chief complaint: SOA History of present illness: 49-year-old white male without known past medical history aside from tobacco use has not been to a doctor in several years. Reports exposure to flu recently presented to the emergency room with worsening shortness of breath for several days. On evaluation was found to be in new heart failure with proBNP 8000 white blood cell count 17,000, chest CTA showing ground glass opacities, possible edema, moderate cardiomegaly. EKG showed left bundle branch block with LVH. [id number] ultrasound revealed global hypokinesis and reduced EF. Dr. Benitez with our service was called and agreed to admit. Patient was administered treatment dose Lovenox, 40 mg IV Lasix, milrinone drip. This morning on my arrival to the ICU patient was being taken to MRI for new visual field deficit. Patient had reportedly been normal during initial rounds but by team rounds had developed acute neurologic changes including loss of right visual field and troubles with word finding. MRI was ordered by hospitalist which showed acute occipital infarct and left cerebral artery territory. N eurology at [facility] has been called by hospitalist and they advised patient was not a candidate for tPA as he was already on therapeutic Lovenox because this would increase risk of bleeding. Full echo here shows EF 15 to 20% with four-chamber dilation and biventricular failure. No clear LV thrombus is visualized although cannot be exclusively ruled out and repeat limited imaging with Definity contrast has been requested. In the interim on exam patient appears restless and is not able to give good history for his recent events. States he typically works a full-time job and denies anginal type symptoms. He cannot provide much more history than that at this time. [facility] Disclaimer: The information contained in this section may have been updated after the patient was seen, as this information can be updated by other users. Social History Smoking Status: Never smoker alcohol intake: never current occupational status: employed and other Travel in the last 8 weeks?: None Have you lived/traveled outside [place] in past 30 days?: No Contact w/someone who lives/traveled outside [place] past 30 days?: No Exposure to someone with infectious disease in past 14 days?: No Do you have a fever (greater than 100.4 F or 38 C)?: No Have you tested positive for COVID-19?: No Exposed to someone with COVID-19 in past 14 days?: No Do you have a sore throat?: No Do you have a cough?: No Do you have any weakness?: No Do you have any diarrhea?: No Are you experiencing any unusual bleeding?: No Do you have any muscle aches/pain?: No Do you have any abdominal pain?: No Are you experiencing loss of taste or smell?: No Review of Systems Review of Systems Review of systems:: unable to obtain Review of systems (narrative): Patient unable to provide answers due to acute stroke *Neurologic Neurologic: Reports system reviewed and no additional complaints, except as documented and Reports as per HPI Exam Data for Last 24 hours Vital signs and Labs for Last 24 Hours: Temp Pulse Resp BP Pulse Ox O2 Del Method O2 Flow Rate 97.9 F 95 H 17 99/75 L 96 Nasal Cannula 3 05/02/25 13:01 05/02/25 13:01 05/02/25 13:01 05/02/25 13:01 05/02/25 13:01 05/02/25 13:01 05/02/25 13:01 Laboratory Results - last 24 hr 05/01/25 17:31: Chlamy pneumoniae PCR Not detected, Adenovirus (PCR) Not detected, B. pertussis DNA (PCR) Not detected, Coronavirus OC43 (PCR) Not detected, Coronavirus HKU1 (PCR) Not detected, Coronavirus 229E (PCR) Not detected, SARS-CoV-2 (PCR) Not detected 05/01/25 17:31: SARS-CoV-2 (PCR) Not detected, Coronavirus NL63 (PCR) Not detected, Human Metapneumovir PCR Not detected, Influenza A (H1) PCR Not detected, Influ A (H1N1/09) PCR Not detected, Influenza A (H3) PCR Not detected, Influenza Type A (PCR) Not detected, Influenza A Untype (PCR) Not detected, Influenza Type B (PCR) Not detected 05/01/25 17:31: Influenza Type B (PCR) Not detected, M. pneumoniae (PCR) Not detected, Parainfluenza 1 (PCR) Not detected, Parainfluenza 2 (PCR) Not detected, Parainfluenza 3 (PCR) Not detected, Parainfluenza 4 (PCR) Not detected, RSV (PCR) Not detected, Entero/Rhino (PCR) Not detected 05/01/25 17:40: WBC 17.0 H, RBC 4.33 L, Hgb 12.0 L, Hct 36.3 L, MCV 83.8, MCH 27.7, MCHC 33.1, RDW 14.4, Plt Count 331, MPV 10.1, Neut % (Auto) 80.3 H, Lymph % (Auto) 12.2, [place] % (Auto) 6.4, Eos % (Auto) 0.4, Baso % (Auto) 0.2, Neut # (Auto) 13.7 H, Lymph # (Auto) 2.1, [place] # (Auto) 1.1 H, Eos # (Auto) 0.1, Baso # (Auto) 0.0, Sodium 135 L, Potassium 3.2 L, Chloride 96 L, Carbon Dioxide 27, Anion Gap 15.2 H, BUN 9, Creatinine 1.00, Estimated Creat Clear 105, Estimated GFR 80, Est GFR ( Amer) 97, Glucose 97, Calcium 8.1 L, Magnesium 1.6, Total Bilirubin 0.4, AST 52, ALT 88 H, Alkaline Phosphatase 82, Troponin I 0.03, NT-Pro-B Natriuret Pep 7790 H, Total Protein 6.5, Albumin 3.7, Globulin 2.8, Albumin/Globulin Ratio 1.3 05/01/25 21:21: Troponin I 0.02 05/02/25 00:09: Troponin I 0.02 05/02/25 04:45: WBC 13.9 H, RBC 4.31 L, Hgb 11.7 L, Hct 36.4 L, MCV 84.5, MCH 27.1, MCHC 32.1, RDW 14.6, Plt Count 306, MPV 10.8 H, Neut % (Auto) 94.0 H, Lymph % (Auto) 4.1 L, [place] % (Auto) 1.2 L, Eos % (Auto) 0.0 L, Baso % (Auto) 0.1, Neut # (Auto) 13.0 H, Lymph # (Auto) 0.6 L, [place] # (Auto) 0.2, Eos # (Auto) 0.0, Baso # (Auto) 0.0, Sodium 131 L, Potassium 3.8, Chloride 98, Carbon Dioxide 23, Anion Gap 13.8, BUN 10, Creatinine 0.80, Estimated Creat Clear 138, Estimated GFR 104, Est GFR ( Amer) 125 D, Glucose 158 H D, Calcium 8.2 L , Magnesium 1.7, Total Bilirubin 0.5, AST 47, ALT 83 H, Alkaline Phosphatase 94, Total Protein 6.5, Albumin 3.7, Globulin 2.8, Albumin/Globulin Ratio 1.3 05/02/25 12:01: POC Glucose 141 H 05/02/25 : Urine Color Yellow, Urine Appearance Clear, Urine pH 7.0, Ur Specific [place] <= 1.005, Urine Protein Negative, Urine Glucose (UA) Negative, Urine Ketones Negative, Urine Blood Negative, Urine Nitrate Negative, Urine Bilirubin Negative, Urine Urobilinogen 0.2, Ur Leukocyte Esterase Negative I & O for Last 24 hours: Intake & Output 04/29/25 04/30/25 05/01/25 05/02/25 23:59 23:59 23:59 23:59 Intake Total 376.011 / 376.011 Output Total 1350 / 1350 2875 / 2875 Balance -1350 / -1350 -2498.989 / -2498.989 Weight 188 lb 6.4 oz 188 lb 6.16 oz Constitutional Constitutional: no acute distress and cooperative *Routine HEENT Exam Eye: Present PERRL *Routine Respiratory Exam Respiratory: Present CTA bilaterally; Absent accessory muscle use, wheezes or crackles *Routine Cardiovascular Exam Cardiovascular: Present RRR, Normal S1 and Normal S2; Absent murmur, gallop or rubs *Routine Abdominal Exam Abdominal: Present soft; Absent tenderness *Routine Extremities Exam Extremities: Present pulses intact; Absent cyanosis or edema *Routine Skin Exam Skin: Present intact; Absent erythema or wounds *Routine Neurological Exam Comments: Patient appears restless, poor historian, troubles with word finding. I did not complete a full neuroexam which was just completed by hospitalist. Routine Psychiatric Exam Psychiatric: Present cooperative Meds Home Medications and Allergies Home Medications ?Medication ?Instructions ?Recorded ?Confirmed ?Type No Known Home Medications 05/01/2504/09 History New Prescriptions to Start Prescriptions: Allergies Allergy/AdvReac Type Severity Reaction Status Date / Time No Known Allergies Allergy Verified 05/01/25 17:39 Assessment and Plan *Assessment and plan (1) Occipital infarction: Status: Acute Category: Medical Code(s): I63.9 - Cerebral infarction, unspecified (2) Acute HFrEF (heart failure with reduced ejection fraction): Status: Acute Category: Medical Code(s): I50.21 - Acute systolic (congestive) heart failure Plan Acute HFrEF - New diagnosis this admission with PRELIM ECHO showing EF 15 to 20%, four- chamber dilation, proBNP 8000, ground glass opacities on CT - 4 chamber dilation indicates likely some component of acute on chronic heart failure - GDMT on hold due to hypotension. - Patient has received Lasix, recommend monitoring I/O and continued diuresis - will need ischemic evaluation but will need to coordinate with Neurology due to acute CVA Acute Left Occipital Infarct - presumed embolic from LV thrombus but cannot conclusively determine this on current imaging - pt is on treatment dose Lovenox - not a candidate for thrombolytics per Neuro phone consults due to Lovenox and risk of bleed (strict contraindication) - repeat Limited ECHO with contrast and focus on apex requested but unclear whether this was completed prior to pt departure -[facility], [place] neuro has requested we keep systolic blood pressure greater than 120. Patient's pressure currently in the 90s so we will add dopamine Further CV workup and management per cardiology at [facility]. Patient is actively being transferred. We will be happy to see him in our clinic postdischarge if needed.
[2025-05-02 14:33] LABS: Bacteria,Urine Trace /lpf; Squamous Epithelial Cell,Urine Occasional #/hpf (0-5); WBC,Urine Occasional #/hpf (0-3)
== END 2025-05-02 14:00 | disposition short-term general hospital (02) ==
LOC: ER 19:49 → ICU 19:56
PROVIDERS: Nurse Practitioner Acute Care; Physician Assistant; Admitting Provider Student in an Organized Health Care Education/Training Program; Emergency Provider Student in an Organized Health Care Education/Training Program; Visit Provider Student in an Organized Health Care Education/Training Program
DX: I50.21 Acute systolic (congestive) heart failure (principal); I63.432 Cerebral infarction due to embolism of left posterior cerebral artery; E87.6 Hypokalemia; K12.1 Other forms of stomatitis; Z87.891 Personal history of nicotine dependence; H53.47 Heteronymous bilateral field defects; R29.702 NIHSS score 2; I44.7 Left bundle-branch block, unspecified; I95.9 Hypotension, unspecified; J06.9 Acute upper respiratory infection, unspecified; Z20.828 Contact with and (suspected) exposure to other viral communicable diseases
CPT/HCPCS: 0223U; 36415; 70549; 70553; 71045; 71275; 80053; 81001; 82962; 83735; 83880; 84484; 85025; 87636; 93005; 93306; 94640; 99285; A9576; J1265; J1650; J1938; J2260; J2919; Q9957; Q9967